=== PATIENT | male | born 1945 | race American Indian/Alaskan Native ===

== ENCOUNTER 2016-07-12 09:31 | Inpatient (IN) | payer BC, MEDICARE ==
--- NOTE | 2016-07-12 10:06 | C.PDOC ---
History Of Present Illness The patient, a 70 y/o male whose PMHx includes HTN and recent MS, is brought to the ED by ambulance for evaluation of dizziness which gradually developed while patient was at work this morning. Patient states he was asymptomatic when he woke up. Patient then walked "quite a distance" to work. Shortly after, patient began experiencing dizziness and lightheadedness. Patient states he took his "heart medicine" at 01:00. Patient denies any active complaints at present time. He also denies fever, chills, dizziness, headache, vision change, focal deficits, chest pain, shortness of breath, dyspnea, diaphoresis, palpitation, abd. pain, N/V/D, UTI sx, denies lower extremity numbness/weakness, swelling s at this time. Time Seen by Provider: 07/12/16 09:47 Chief Complaint (Nursing): Dizziness/Lightheaded History Per: Patient, EMS History/Exam Limitations: no limitations Onset/Duration Of Symptoms: Hrs, Gradual Current Symptoms Are (Timing): Better Activity At Onset Of Symptoms: Standing Seizure Or Post-ictal Symptoms: None Fall Associated With With Symptoms: No Additional History Per: Patient - Symptoms Of CVA Associated Symptoms: denies: Impaired Speech, New Vision Deficit(Left), New Vision Deficit(Right), Decreased Ability To Walk, New Confusion Past Medical History Reviewed: Historical Data, Nursing Documentation, Vital Signs Vital Signs: Last Vital Signs Temp 97.4 F L 07/12/16 17:18 Pulse 69 07/12/16 17:18 Resp 20 07/12/16 17:18 BP 185/88 H 07/12/16 17:18 Pulse Ox 100 07/12/16 17:18 - Medical History PMH: HTN Surgical History: Tonsillectomy Family History: States: Unknown Family Hx - Social History Hx Alcohol Use: Yes Hx Substance Use: No - Immunization History Hx Influenza Vaccination: No Review Of Systems Except As Marked, All Systems Reviewed And Found Negative. Constitutional: Negative for: Fever, Chills Eyes: Negative for: Vision Change Cardiovascular: Negative for: Chest Pain Respiratory: Negative for: Shortness of Breath Neurological: Positive for: Dizziness, Other (+lightheadednes ). Negative for: Weakness, Numbness, Change in Speech, Confusion, Altered Mental Status, Headache Physical Exam - Physical Exam Appears: Well, Non-toxic, No Acute Distress Skin: Normal Color, Warm, Dry Head: Atraumatic, Normacephalic Eye(s): bilateral: Normal Inspection, PERRL, EOMI Oral Mucosa: Moist Throat: Normal Neck: Normal, Normal ROM, Supple Chest: Symmetrical, No Deformity, No Tenderness Cardiovascular: Rhythm Regular, No Murmur, No JVD Respiratory: Normal Breath Sounds, No Rales, No Rhonchi, No Wheezing Gastrointestinal/Abdominal: Normal Exam, Soft, No Tenderness, No Guarding, No Rebound Back: Normal Inspection, No Vertebral Tenderness, No Paraspinal Tenderness Extremity: Normal ROM, No Pedal Edema, No Calf Tenderness, Capillary Refill ( less than 2 seconds), No Deformity, No Swelling Pulses: Left Dorsalis Pedis: Normal, Right Dorsalis Pedis: Normal Neurological/Psych: Oriented x3, Normal Speech, Normal Cognition, Normal Motor, Normal Sensation, Normal Reflexes Gait: Steady ED Course And Treatment - Laboratory Results Result Diagrams: 07/12/16 10:19 07/12/16 10:19 ECG: Interpreted By Me, Viewed By Me ECG Rhythm: Sinus Rhythm Interpretation Of ECG: Normal Sinus Rhythm at rate 81bpm. Lext axis deviation. Q waves in VII, VIII, and aVL. No prior EKG for comparison. O2 Sat by Pulse Oximetry: 98 (on RA) Pulse Ox Interpretation: Normal - Other Rad CXR X-Ray: Interpreted by Me, Viewed By Me, Read By Radiologist Interpretation: Accession No. : [id number]. Patient Name / ID : MARTY JORGENSEN / [id number]. Exam Date : 07/12/2016 10:42:08 ( Approved ). Study Comment : Sex / Age : M / 70Y. Creator : Jackie Ross MD. Dictator : Jackie Ross MD. [employer] : Anesthesia Assistant : Jackie Ross MD. Approver2 : Report Date : 07/12/2016 10:49:34. My Comment : . HISTORY: chest pain. COMPARISON: None available. TECHNIQUE: Chest, one view. FINDINGS: LUNGS: No focal consolidation. Right lower lobe nodular density appears calcified. Probable right pleural plaque. Please note that chest x-ray has limited sensitivity for the detection of pulmonary masses. PLEURA: No significant pleural effusion identified. No definite pneumothorax . CARDIOVASCULAR: Cardiomegaly. OSSEOUS STRUCTURES: Degenerative changes. VISUALIZED UPPER ABDOMEN: Unremarkable. OTHER FINDINGS: None. IMPRESSION: No focal consolidation, significant pleural effusion, or definite pneumothorax identified. Cardiomegaly. Probable right pleural plaque. Small nodular density at the right lung base appears calcified. - CT Scan/US CT Head Other Rad Studies (CT/US): Interpreted By Me, Read By Radiologist, Radiology Report Reviewed CT/US Interpretation: Accession No. : [id number]. Patient Name / ID : MARTY JORGENSEN / [id number]. Exam Date : 07/12/2016 11:30:32 ( Approved ). Study Comment : Sex / Age : M / 70Y. Creator : Jackie Ross MD. Dictator : Jackie Ross MD. [employer] : Anesthesia Assistant : Jackie Ross MD. Approver2 : Report Date : 07/12/2016 11:55:45. My Comment : . PROCEDURE: CT HEAD WITHOUT CONTRAST. HISTORY: dizziness, HTN. COMPARISON: None available. TECHNIQUE: Axial computed tomography images were obtained through the head/brain without intravenous contrast. Radiation dose: Total exam DLP = 876.02 mGy-cm. This CT exam was performed using one or more of the following dose reduction techniques: Automated exposure control, adjustment of the mA and/or kV according to patient size, and/or use of iterative reconstruction technique. FINDINGS: HEMORRHAGE: No intracranial hemorrhage. BRAIN: Diffuse atrophy with prominence of the ventricles and sulci noted. No mass effect or edema. Atherosclerotic intracranial calcifications. Scattered periventricular and subcortical white matter hypodensities, which are nonspecific, but often seen with chronic microvascular ischemic disease. Bilateral lacunar type infarcts involving the bilateral basal ganglia/thalami. Please note that MRI with diffusion imaging is more sensitive in the detection of acute ischemic event. VENTRICLES: No hydrocephalus. CALVARIUM: Unremarkable. PARANASAL SINUSES: Unremarkable as visualized. No significant inflammatory changes. MASTOID AIR CELLS: Unremarkable as visualized. No inflammatory changes. OTHER FINDINGS: None. IMPRESSION: Moderate nonspecific white matter changes. Bilateral lacunar type infarcts involving the bilateral basal ganglia/thalami. Please note that MRI with diffusion imaging is more sensitive in the detection of acute ischemic event. Progress Note: Labs, EKG, CT Head, CXR ordered and reviewed. Patient received Trandate IV. Pt remained stable during the ED evaluation. Pt remained HTN with minimal improvement in BP. Case discussed with ED attending, diagnostics and imaging review and discussed. Admission recommend. Case discussed with pt' s neurologist and results discussed. Admission to Hospitalist with his consult arranged. notified about admission. After pt was admitted , was notified by RN, pt had BM with BRB[facility], " pt admits noted first time". Disposition - Disposition Disposition: HOSPITALIZED Disposition Time: 12:10 Condition: FAIR - Clinical Impression Clinical Impression: Hypertensive urgency, Lacunar infarction, GI bleed - PA / RELAY DISPATCHER / Resident Statement MD/DO has reviewed & agrees with the documentation as recorded. - Scribe Statement The provider has reviewed the documentation as recorded by the Scribe (Twyla Bianchi) All medical record entries made by the Scribe were at my direction and personally dictated by me. I have reviewed the chart and agree that the record accurately reflects my personal performance of the history, physical exam, medical decision making, and the department course for this patient. I have also personally directed, reviewed, and agree with the discharge instructions and disposition.
[2016-07-12] MEDS ORDERED: Labetalol 25mg/5ml Syringe IVP STA (10:23)
[2016-07-12 10:26] LABS: BASO % 0.6 % (0.0-2.0); EOS % 0.3 % (0.0-4.0); LYMPH # 0.9 K/uL (1.0-4.3); LYMPH % 12.8 % (20.0-40.0); MEAN CELL VOLUME 76.6 fL (80.0-94.0); MEAN CORPUSCULAR HEMOGLOBIN 23.7 pg (27.0-31.0); MEAN CORPUSCULAR HGB CONC 30.9 g/dL (33.0-37.0); MEAN PLATELET VOLUME 8.7 fL (7.2-11.7); MONO # 0.5 K/uL (0.0-0.8); MONO % 7.7 % (0.0-10.0); NRBC % 0.1 % (0.0-2.0); WHITE BLOOD COUNT 6.8 K/uL (4.8-10.8)
[2016-07-12 10:35] LABS: INR 1.1
[2016-07-12 10:36] LABS: CHLORIDE 102 mmol/L (98-107); POTASSIUM 3.5 mmol/L (3.6-5.2); SODIUM 140 mmol/L (132-148)
[2016-07-12 10:38] LABS: GFR AFRICAN-AMERICAN > 60
[2016-07-12 10:39] LABS: ALB/GLOB RATIO 1.2 (1.0-2.1); ALKALINE PHOSPHATASE 72 U/L (38-126); ALT/SGPT 13 U/L (21-72); AST/SGOT 19 U/L (17-59); BILIRUBIN,TOTAL 1.5 mg/dL (0.2-1.3); BLOOD UREA NITROGEN 12 mg/dL (9-20); CALCIUM 8.5 mg/dl (8.6-10.4); CARBON DIOXIDE 26 mmol/L (22-30); GLUCOSE,RANDOM 89 mg/dL (75-110); TOTAL PROTEIN 7.1 g/dL (6.3-8.3)
--- NOTE | 2016-07-12 10:51 | RAD ---
HISTORY: chest pain COMPARISON: None available TECHNIQUE: Chest, one view. FINDINGS: LUNGS: No focal consolidation. Right lower lobe nodular density appears calcified. Probable right pleural plaque. Please note that chest x-ray has limited sensitivity for the detection of pulmonary masses. PLEURA: No significant pleural effusion identified. No definite pneumothorax . CARDIOVASCULAR: Cardiomegaly. OSSEOUS STRUCTURES: Degenerative changes. VISUALIZED UPPER ABDOMEN: Unremarkable. OTHER FINDINGS: None. IMPRESSION: No focal consolidation, significant pleural effusion, or definite pneumothorax identified. Cardiomegaly. Probable right pleural plaque. Small nodular density at the right lung base appears calcified.
--- NOTE | 2016-07-12 11:57 | CT ---
PROCEDURE: CT HEAD WITHOUT CONTRAST. HISTORY: dizziness, HTN COMPARISON: None available. TECHNIQUE: Axial computed tomography images were obtained through the head/brain without intravenous contrast. Radiation dose: Total exam DLP = 876.02 mGy-cm. This CT exam was performed using one or more of the following dose reduction techniques: Automated exposure control, adjustment of the mA and/or kV according to patient size, and/or use of iterative reconstruction technique. FINDINGS: HEMORRHAGE: No intracranial hemorrhage. BRAIN: Diffuse atrophy with prominence of the ventricles and sulci noted. No mass effect or edema. Atherosclerotic intracranial calcifications. Scattered periventricular and subcortical white matter hypodensities, which are nonspecific, but often seen with chronic microvascular ischemic disease. Bilateral lacunar type infarcts involving the bilateral basal ganglia/thalami. Please note that MRI with diffusion imaging is more sensitive in the detection of acute ischemic event. VENTRICLES: No hydrocephalus. CALVARIUM: Unremarkable. PARANASAL SINUSES: Unremarkable as visualized. No significant inflammatory changes. MASTOID AIR CELLS: Unremarkable as visualized. No inflammatory changes. OTHER FINDINGS: None. IMPRESSION: Moderate nonspecific white matter changes. Bilateral lacunar type infarcts involving the bilateral basal ganglia/thalami. Please note that MRI with diffusion imaging is more sensitive in the detection of acute ischemic event.
[2016-07-12 13:37] LABS: RBC URINE 1 /hpf (0-3); URINE BILIRUBIN NEGATIVE (NEGATIVE); URINE BLOOD NEGATIVE (NEGATIVE); URINE COLOR Yellow (YELLOW); URINE GLUCOSE (UA) NORMAL (Normal); URINE KETONE NEGATIVE (NEGATIVE); URINE LEUKOCYTE ESTERASE NEG Leu/uL (Negative); URINE PROTEIN 1+ mg/dL (NEGATIVE); URINE UROBILINOGEN NORMAL mg/dL (0.2-1.0); WBC URINE 1 /hpf (0-5)
[2016-07-12] MEDS ORDERED: Nitroglycerin 50mg in D5W 250 ML IV ONE (15:19)
[2016-07-12] MEDS ORDERED: Enalaprilat 2.5 MG/2 ML IV STA (15:21)
[2016-07-12] MEDS ORDERED: Enalaprilat 2.5 MG/2 ML ONE (15:29)
[2016-07-12] MEDS ORDERED: Sodium Chloride 0.45% 1,000 ML IV ONE (15:57)
[2016-07-12] MEDS ORDERED: Potassium Chloride 20 mEq ER Tab PO ONE ×2 (16:00→16:11)
[2016-07-12] MEDS: Sodium Chloride 0.45% 1,000 ML IV SCH (16:07)
--- NOTE | 2016-07-12 16:59 | CP.PCM.HP ---
<Esther Rooney I - Last Filed: 07/12/16 16:54> History of Present Illness - History of Present Illness History of Present Illness: CC: "I got dizzy." Patient is a 70 year old male with unknown past medical history who presents to the ED for dizziness. States that today he woke up feeling fine and walked to walk. Half way there, he became dizzy so he had to sit down because he felt like he was crawling. After that, he got up and finished walking to work and when he got there, he stated that he was dizzy again and the safety security officer called 911. Denies chest pain, SOB, headache, numbness/tingling, confusion, weakness, nausea, vomiting, palpitations or difficulty ambulating. Pmhx: unknown as above Surg hx: unkknown Family hx: unknown Social hx: Smokes 2-3 cigarettes per day since the age of 19, drinks one 8 ounce glass of either beer, liquor or wine per week Meds: unknown Allergies: NKDA PMD: Unknown ED course: Hydralazine 10 mg IVP x 1, Labetalol 20 mg IVP x 1 Present on Admission - Present on Admission Any Indicators Present on Admission: No Review of Systems - Constitutional Constitutional: absent: Chills, Fever, Night Sweats - EENT Eyes: absent: Blurred Vision, Spots in Vision Nose/Mouth/Throat: absent: Sore Throat - Cardiovascular Cardiovascular: absent: Chest Pain, Palpitations, Pedal Edema - Respiratory Respiratory: absent: Dyspnea - Gastrointestinal Gastrointestinal: absent: Abdominal Pain, Hematemesis, Hematochezia, Nausea, Vomiting - Genitourinary Genitourinary: absent: Difficulty Urinating, Dysuria - Musculoskeletal Musculoskeletal: absent: Muscle Weakness, Numbness, Tingling - Integumentary Integumentary: absent: Rash - Neurological Neurological: Dizziness. absent: Focal Weakness, Lack of Coordination, Weakness - Psychiatric Psychiatric: absent: Confusion - Endocrine Endocrine: absent: Palpitations Past Patient History - Past Social History Smoking Status: Never Smoked - CARDIAC Hx Hypertension: Yes - PSYCHIATRIC Hx Substance Use: No - SURGICAL HISTORY Hx Tonsillectomy: Yes - ANESTHESIA Hx Anesthesia: Yes Hx Anesthesia Reactions: No Meds Allergies/Adverse Reactions: Allergies Allergy/AdvReac Type Severity Reaction Status Date / Time No Known Allergies Allergy Verified 07/12/16 09:44 Physical Exam - Constitutional Appears: Non-toxic, No Acute Distress - Head Exam Head Exam: ATRAUMATIC, NORMAL INSPECTION, NORMOCEPHALIC - Eye Exam Pupil Exam: Miosis - ENT Exam ENT Exam: Mucous Membranes Moist - Respiratory Exam Respiratory Exam: Clear to Auscultation Bilateral, NORMAL BREATHING PATTERN - Cardiovascular Exam Cardiovascular Exam: REGULAR RHYTHM, RRR, +S1, +S2 - GI/Abdominal Exam GI & Abdominal Exam: Normal Bowel Sounds, Soft. absent: Tenderness - Rectal Exam Additional comments: Refused - Extremities Exam Extremities exam: Positive for: normal inspection. Negative for: pedal edema - Back Exam Back exam: NORMAL INSPECTION - Neurological Exam Neurological exam: Alert, CN II-XII Intact, Oriented x3, Reflexes Normal Additional comments: normal muscle tone throughout - Psychiatric Exam Psychiatric exam: Normal Affect - Skin Skin Exam: Dry, Normal Color, Warm Results - Vital Signs Recent Vital Signs: Last Vital Signs Temp 98.1 F 07/12/16 16:34 Pulse 71 07/12/16 16:34 Resp 18 07/12/16 16:34 BP 167/88 H 07/12/16 16:34 Pulse Ox 100 07/12/16 16:34 - Labs Result Diagrams: 07/12/16 10:19 07/12/16 10:19 Labs: Laboratory Results - last 24 hr 07/12/16 07/12/16 13:22 15:50 Urine Color Yellow Urine Clarity Clear Urine pH 7.0 Ur Specific [place] 1.015 Urine Protein 1+ H Urine Glucose (UA) Normal Urine Ketones Negative Urine Blood Negative Urine Nitrate Negative Urine Bilirubin Negative Urine Urobilinogen Normal Ur Leukocyte Esterase Neg Urine WBC (Auto) 1 Urine RBC (Auto) 1 Ur Squamous Epith Cells < 1 Blood Type O POSITIVE Antibody Screen Negative Assessment & Plan - Assessment and Plan (Free Text) Assessment: 1. Hypertensive Urgency Admit to Inpt/Tele Start Labetalol 100 mg po BID Start Hydralazine 10 mg IVP q6 prn SBP >180 Will be careful to not lower the BP too quickly Monitor BP 2. Bilateral Lacunar Infarcts as seen on CT (please see official report) Neuro (Dr. Spike Carrera) consulted- await recommendations Patient is a candidate for aspirin but it is contraindicated for GI bleed 3. GI Bleed Patient had a bright red bloody bowel movement at bedside Protonix 40 mg IVP q12 GI (Dr. Fish) consulted- follow up recommendations Recheck CBC now and monitor 4. EtOH abuse Per , patient drinks 1 pint of liquor per day Check UDS and EtOH level Start Ativan 1 mg IVP q3 prn 5. Anemia Hgb 9.9 on admission Most likely secondary to GI bleed Order iron studies, retic count GI on board Follow up repeat CBC Type and screen and obtain transfusion consent Set aside 2 units of PRBC's 6. Hypokalemia 3.5 Replete Recheck in AM 7. Prophylaxis SCD Protonix Chemical anticoagulation contraindicated due to GI bleed <Reji Arzate - Last Filed: 07/17/16 12:59> Results - Vital Signs Recent Vital Signs: Last Vital Signs Temp 98.1 F 07/15/16 16:47 Pulse 79 07/15/16 17:30 Resp 20 07/15/16 16:47 BP 166/74 H 07/15/16 16:47 Pulse Ox 99 07/15/16 16:47 - Labs Result Diagrams: 07/15/16 06:42 07/15/16 06:42 Labs: Laboratory Results - last 24 hr 07/13/16 18:36 von Willebrand Antigen 116 Attending/Attestation - Attestation I have personally seen and examined this patient.: Yes I have fully participated in the care of the patient.: Yes I have reviewed all pertinent clinical information: Yes Notes (Text): 07/17/16 12:58 Patient was seen and examined at bedside with the resident. I reviewed patient's medical record, labs, imaging studies, ER notes. I discussed the plan of care with the resident and I agree with the above history and physical and assessment/plan by the resident.
--- NOTE | 2016-07-12 17:16 | CP.PCM.CON ---
History of Present Illness - History of Present Illness History of Present Illness: Chief complaint: Dizziness History present illness: 70-year-old male with known history of hypertension but was not taking any medications in the past came to the emergency room with the dizziness. This morning patient woke up but 2:00, and he came to work. According to the patient's that he wants to go to work. When he arrived the job, he felt dizzy. And the bystander in the job called ambulance and brought him to the emergency room. In the ER patient was somewhat confused, not getting proper information. But he was having some dizziness, which got better. When examined the patient he is alert and responding, he understands. He did not have any headache, no chest pain, no abdominal pain, denies any nausea, no vomiting noted. Small amount of blood in the stool noted but it was not clear as per the nurses. He does not have any vomiting currently. No fever or chills. Patient drinks a daily at least one glass hard liquor, for many years., He is also smokes at least 3-4 cigarettes a day Review of Systems - Review of Systems All systems: reviewed and no additional remarkable complaints except Review of Systems: patient is alert. He does not have any headache. Minimal dizziness noted. Palpitation is negative. In the emergency room patient was having high blood pressure. No nausea vomiting noted, denies any abdominal pain. In the past the patient did not have any bleeding episodes. Patient is not clear whether he had any anemia in the past. Patient did not see any doctors in the past Past Patient History - Tetanus Immunizations Tetanus Immunization: Unknown - Past Medical History & Family History Past Medical History?: No Past Family History: Reviewed and not pertinent - Past Social History Smoking Status: Never Smoked - CARDIAC Hx Hypertension: Yes - PSYCHIATRIC Hx Substance Use: No - SURGICAL HISTORY Hx Tonsillectomy: Yes - ANESTHESIA Hx Anesthesia: Yes Hx Anesthesia Reactions: No Meds Allergies/Adverse Reactions: Allergies Allergy/AdvReac Type Severity Reaction Status Date / Time No Known Allergies Allergy Verified 07/12/16 09:44 - Medications Medications: Current Medications Hydralazine HCl (Apresoline) 10 mg IVP Q6H PRN PRN Reason: Systolic Blood Pressure Sodium Chloride (Sodium Chloride 0.45%) 1,000 mls @ 75 mls/hr IV .[id number] [facility] Last Admin: 07/12/16 16:07 Dose: 75 mls/hr Labetalol HCl (Trandate) 100 mg PO BID [facility] Pantoprazole Sodium (Protonix Inj) 40 mg IVP Q12 [facility] Last Admin: 07/12/16 16:07 Dose: 40 mg Physical Exam - Head Exam Head Exam: ATRAUMATIC Additional comments: chest good air entry bilaterally. Regular heart sound noted. Nontender abdomen. Extended is no pedal edema [employer] alert awake oriented 3 no focal neurological deficit. Patient was able to stand, he did not have any dizziness when he is standing, and he had a small amount of urination, but more frequently. Patient able to void by himself Results - Vital Signs Recent Vital Signs: Last Vital Signs Temp 98.1 F 07/12/16 16:34 Pulse 71 07/12/16 16:34 Resp 18 07/12/16 16:34 BP 167/88 H 07/12/16 16:34 Pulse Ox 100 07/12/16 16:34 patient was hospitalized recently 3-4 months ago for possible pneumonia, at the time patient had a chest tube placement for possible empyema and lung collapse but history is not available, as per patient's - Labs Result Diagrams: 07/12/16 10:19 07/12/16 10:19 Labs: Laboratory Results - last 24 hr 07/12/16 07/12/16 13:22 15:50 Urine Color Yellow Urine Clarity Clear Urine pH 7.0 Ur Specific [place] 1.015 Urine Protein 1+ H Urine Glucose (UA) Normal Urine Ketones Negative Urine Blood Negative Urine Nitrate Negative Urine Bilirubin Negative Urine Urobilinogen Normal Ur Leukocyte Esterase Neg Urine WBC (Auto) 1 Urine RBC (Auto) 1 Ur Squamous Epith Cells < 1 Blood Type O POSITIVE Antibody Screen Negative - Impressions Impression: chest x-rays nonspecific. CAT scan of the head showing evidence of lacunar infarct probably old Assessment & Plan (1) Hypertensive urgency Assessment and Plan: patient is a 70-year-old male with a noncompliant support medication, did not see any doctor so far, into the emergency room with the dizziness. Patient is currently having uncontrolled hypertension. There is no evidence of any end organ damage currently. Patient is also drinks alcohol on and off. Alcoholism likely. Patient is given intravenous antihypertensives. I suggested to start the patient on by mouth medications. GI prophylaxis. Spoke to the patient's in details about the patient's condition. According to the patient is noncompliance with medications, does not see any doctor, he still drinks alcohol, also smokes. I spoke to the patient in details about the. Patient is also having anemia, possibly chronic anemia. patient will need to be evaluated for GI loss. no need of ICU at this time. Status: Acute
[2016-07-12 19:17] LABS: BASO % 0.7 % (0.0-2.0); EOS # 0.1 K/uL (0.0-0.7); EOS % 1.1 % (0.0-4.0); HEMATOCRIT 33.7 % (35.0-51.0); LYMPH # 1.2 K/uL (1.0-4.3); LYMPH % 18.6 % (20.0-40.0); MEAN CELL VOLUME 75.7 fL (80.0-94.0); MEAN CORPUSCULAR HEMOGLOBIN 23.3 pg (27.0-31.0); MEAN CORPUSCULAR HGB CONC 30.8 g/dL (33.0-37.0); MEAN PLATELET VOLUME 8.3 fL (7.2-11.7); MONO # 0.7 K/uL (0.0-0.8); MONO % 10.7 % (0.0-10.0); RED CELL DISTRIBUTION WIDTH 20.8 % (11.5-14.5); WHITE BLOOD COUNT 6.7 K/uL (4.8-10.8)
--- NOTE | 2016-07-12 19:30 | CON ---
DATE: 07/12/2016 REASON FOR CONSULTATION: Dizziness. HISTORY OF PRESENT ILLNESS: The patient is a 70-year-old male who has been asked for evaluation of d shaan. The patient got up this morning and went to work. Half way to work, he started becoming d ysabel. Dizziness is described as lightheaded feeling and he was feeling like he was going to pass out . Apparently, he sat down because he felt like he was going to faint and then was crawling. He got up and finished walkin to work, then again he started getting dizzy and the assistant director of security called 911 . The patient never lost consciousness. He denied any focal weakness in his arms or legs. Once he got to the Emergency Room, his dizziness started getting better. He denied any loss of hearing or ri nging in the ears. Denies having any focal weakness in the arms or legs. In the Emergency Room, the patient's blood pressure was noted to be elevated. REVIEW OF SYSTEMS: Denies any headache, chest pain, shortness of breath, abdominal pain, constipatio n, diarrhea, dysuria, pyuria, cough, sputum production. Positive for memory loss. Denies any skin r kathy or hallucinations. PAST MEDICAL HISTORY: Hypertension. PAST SURGICAL HISTORY: Tonsillectomy. MEDICATIONS AT HOME: None. ALLERGIES: No known drug allergies. SOCIAL HISTORY: Denies smoking, use of alcohol or illicit drugs. FAMILY HISTORY: Reviewed and noncontributory to the case. PHYSICAL EXAMINATION: GENERAL: The patient is an elderly male lying on the bed, in no acute distress. VITAL SIGNS: His blood pressure is 167/88; it was 216/106 earlier today. Heart rate is 71 per minut e, breathing at a rate of 16 per minute, temperature is 98.1 degrees Fahrenheit. HEENT: Head normocephalic, atraumatic. NECK: Supple. There are no carotid bruits. LUNGS: Clear. CARDIOVASCULAR: S1, S2 audible. No murmurs. ABDOMEN: Soft, nontender, bowel sounds present. NEUROLOGIC EXAMINATION: MENTAL STATUS: Awake, alert, oriented to time, place, person. Speech is fluent. Naming and repetit ion is normal. Recent memory is 1/3 in 5 minutes. He follows all simple commands. CRANIAL NERVES: Pupils are 4 mm bilaterally, reactive to light. Visual roca are full. Extraocula r movements are intact. There is no facial asymmetry. Palate is upgoing bilaterally and tongue is m idline. MOTOR: Tone is normal. Power is 5/5 bilaterally in all extremities. Reflexes +1 and symmetrical. Plantars are downgoing bilaterally. CEREBELLAR: [id number] shows no dysmetria. GAIT: Narrow based. LABORATORIES: Reviewed, shows WBC of 6.8, hemoglobin 9.9, hematocrit of 32.0 and platelets of 227, I NR is 1.1. Sodium is 140, potassium 3.5, chloride 102, carbon dioxide content 26, BUN of 12, creatin ine 1.1, and glucose of 89. He had a CT scan of the head done which showed moderate nonspecific whit e matter changes, bilateral lacunar type infarcts involving the basal ganglia and . IMPRESSION: 1. Status post dizziness. Rule out any central etiology like cerebrovascular accident, possibly sec ondary to his underlying anemia. 2. Hypertension. 3. Cerebrovascular disease. 4. Gastrointestinal bleed. 5. Memory loss. RECOMMENDATIONS: 1. The patient to have MRI of the brain without contrast. 2. The patient also to have a carotid Doppler study. 3. The patient to have a serum cholesterol level. 4. The patient to have a vitamin B12, T4, and TSH levels. 5. The patient to have a GI evaluation and once cleared from a GI standpoint, the patient will be st arted on aspirin for stroke prophylaxis. 6. The patient's blood pressure to be better controlled. 7. Please continue supportive care and other treatment. Thank you for the opportunity to participate in the care of this patient. Skyla Carrera MD cc: [id number] TT: 07/12/2016 19:29:46 Confirmation # [id number] Dictation # [id number] dn
[2016-07-12] MEDS ORDERED: Pneumococcal 23-Valent Vaccine IM ONE (22:00)
[2016-07-13 06:30] LABS: BASO % 0.6 % (0.0-2.0); EOS # 0.1 K/uL (0.0-0.7); EOS % 1.1 % (0.0-4.0); HEMATOCRIT 31.3 % (35.0-51.0); LYMPH % 16.7 % (20.0-40.0); MEAN CELL VOLUME 76.3 fL (80.0-94.0); MEAN CORPUSCULAR HEMOGLOBIN 23.4 pg (27.0-31.0); MEAN CORPUSCULAR HGB CONC 30.7 g/dL (33.0-37.0); MEAN PLATELET VOLUME 8.2 fL (7.2-11.7); MONO # 0.7 K/uL (0.0-0.8); MONO % 10.9 % (0.0-10.0); NRBC % 0.1 % (0.0-2.0); RED CELL DISTRIBUTION WIDTH 20.8 % (11.5-14.5); WHITE BLOOD COUNT 6.2 K/uL (4.8-10.8)
[2016-07-13 06:42] LABS: CHLORIDE 103 mmol/L (98-107); SODIUM 137 mmol/L (132-148)
[2016-07-13 06:43] LABS: POTASSIUM 3.7 mmol/L (3.6-5.2)
[2016-07-13 06:45] LABS: ALB/GLOB RATIO 1.1 (1.0-2.1); ALKALINE PHOSPHATASE 63 U/L (38-126); AST/SGOT 15 U/L (17-59); BILIRUBIN,TOTAL 1.9 mg/dL (0.2-1.3); BLOOD UREA NITROGEN 12 mg/dL (9-20); CARBON DIOXIDE 26 mmol/L (22-30); CHOLESTEROL 147 mg/dL (0-199); GFR AFRICAN-AMERICAN > 60; GLUCOSE,RANDOM 85 mg/dL (75-110); TOTAL PROTEIN 6.2 g/dL (6.3-8.3)
[2016-07-13 06:46] LABS: ALT/SGPT 11 U/L (21-72)
[2016-07-13 07:08] LABS: THYROID STIMULATING HORMONE 0.74 mIU/L (0.46-4.68)
--- NOTE | 2016-07-13 08:37 | CP.PCM.CON ---
<Joce Cadet - Last Filed: 07/13/16 11:02> History of Present Illness - History of Present Illness History of Present Illness: PGY4 GI Fellow Consult Note Patient is a 70 year old male with unclear PMHx who presented to the ED for dizziness. The patient states that he drove to work and upon arrival, was walking from his car to his office when he became very dizzy. On arrival to his job, his coworkers called an ambulance to bring him to the hospital as he could not even stand on his own. On arrival to the ED he was noted to have a BP of 210 /190 and was given IV Labetalol with improvement in BP. A CT head did reveal two lacunar infarcts in the bilateral basal ganglia. On arrival to the medical floor he had an episode of hematochezia which continued through last night. At present, he has a bedside commode with large amount of melena and some fresh blood. He denies any history of mary hematochezia or recent melena and denies anything like this leading up to admission. Currently, he states he is feeling better and denies any SOB, fatigue, nausea, vomiting, abdominal pain, heartburn. He has had no weight loss recently and does not admit to frequent NSAID use. The patient is unclear as to why, but knows he had a large abdominal surgery previously. He has a large midline scar and believes he had an ostomy with reversal at some point though he cannot describe why. PMHx: Unclear; possibly HTN and recent MT (per EMR) PSHx: Unclear; questionable partial colectomy with ostomy formation and eventual reversal FHx: Discussed with patient and she denies any significant family history Social: Smokes 2-3 cigarettes/day for many years; Weekly EtOH use; Denies illicit drug use Endo: Unsure; pt believes he had a colonoscopy ~2 years ago Review of Systems - Constitutional Constitutional: absent: Anorexia, Chills, Fever, Weight Loss, Weakness - EENT Eyes: absent: Change in Vision Nose/Mouth/Throat: absent: Sore Throat - Cardiovascular Cardiovascular: absent: Chest Pain, Dyspnea, Palpitations - Respiratory Respiratory: absent: Cough, Dyspnea, Excessive Mucous Production - Gastrointestinal Gastrointestinal: Hematochezia, Melena. absent: Abdominal Pain, Constipation, Cramping, Diarrhea, Dyspepsia, Dysphagia, Hematemesis, Loose Stools, Nausea, Vomiting - Genitourinary Genitourinary: absent: Dysuria, Urinary Frequency, Urinary Urgency - Musculoskeletal Musculoskeletal: absent: Back Pain, Neck Pain - Integumentary Integumentary: absent: New Lesions, Rash - Neurological Neurological: absent: Dizziness, Numbness, Focal Weakness - Psychiatric Psychiatric: absent: Anxiety, Depression - Endocrine Endocrine: absent: Polydipsia, Polyphagia, Polyuria - Hematologic/Lymphatic Hematologic: absent: Easy Bleeding, Easy Bruising, Lymphadenopathy Past Patient History - Tetanus Immunizations Tetanus Immunization: Unknown - Past Medical History & Family History Past Medical History?: Yes - Past Social History Smoking Status: Light Smoker < 10 Cigarettes Daily - CARDIAC Hx Cardiac Disorders: Yes Hx Heart Attack: Yes (6 months ago) Hx Hypertension: Yes - PULMONARY Hx Respiratory Disorders: No - NEUROLOGICAL Hx Neurological Disorder: Yes Hx Dizziness: Yes - HEENT Hx HEENT Problems: No - RENAL Hx Chronic Kidney Disease: No - ENDOCRINE/METABOLIC Hx Endocrine Disorders: No - HEMATOLOGICAL/ONCOLOGICAL Hx Blood Disorders: No - INTEGUMENTARY Hx Dermatological Problems: No - MUSCULOSKELETAL/RHEUMATOLOGICAL Hx Musculoskeletal Disorders: No Hx Falls: No - GASTROINTESTINAL Hx Gastrointestinal Disorders: No - GENITOURINARY/GYNECOLOGICAL Hx Genitourinary Disorders: No - PSYCHIATRIC Hx Psychophysiologic Disorder: No Hx Substance Use: No - SURGICAL HISTORY Hx Surgeries: Yes Hx Tonsillectomy: Yes - ANESTHESIA Hx Anesthesia: Yes Hx Anesthesia Reactions: No Hx Malignant Hyperthermia: No Has any member of the family had a problem w/ anesthesia?: No Meds Allergies/Adverse Reactions: Allergies Allergy/AdvReac Type Severity Reaction Status Date / Time No Known Allergies Allergy Verified 07/12/16 09:44 - Medications Medications: Current Medications Hydralazine HCl (Apresoline) 10 mg IVP Q6H PRN PRN Reason: Systolic Blood Pressure Last Admin: 07/12/16 17:42 Dose: 10 mg Sodium Chloride (Sodium Chloride 0.45%) 1,000 mls @ 75 mls/hr IV .[id number] [facility] Last Admin: 07/12/16 16:07 Dose: 75 mls/hr Labetalol HCl (Trandate) 100 mg PO BID [facility] Last Admin: 07/12/16 19:00 Dose: 100 mg Lorazepam (Ativan) 1 mg IVP Q3 PRN PRN Reason: Anxiety Pantoprazole Sodium (Protonix Inj) 40 mg IVP Q12 [facility] Last Admin: 07/12/16 21:59 Dose: 40 mg Physical Exam - Constitutional Appears: Non-toxic, No Acute Distress - Eye Exam Eye Exam: EOMI, PERRL - ENT Exam ENT Exam: Mucous Membranes Moist - Respiratory Exam Respiratory Exam: Clear to Auscultation Bilateral. absent: Rales, Rhonchi, Wheezes - Cardiovascular Exam Cardiovascular Exam: RRR, +S1, +S2 - GI/Abdominal Exam GI & Abdominal Exam: Normal Bowel Sounds, Soft. absent: Distended, Firm, Guarding, Rigid, Tenderness - Rectal Exam Additional comments: Pt refusing rectal examination; commode at bedside with melena/fresh blood - Extremities Exam Extremities exam: Positive for: normal inspection - Neurological Exam Neurological exam: Alert, Oriented x3 - Psychiatric Exam Psychiatric exam: Normal Affect, Normal Mood - Skin Skin Exam: Dry, Warm Results - Vital Signs Recent Vital Signs: Last Vital Signs Temp 97.8 F 07/13/16 04:00 Pulse 71 07/13/16 04:00 Resp 20 07/13/16 04:00 BP 165/67 H 07/13/16 04:00 Pulse Ox 95 07/13/16 04:00 - Labs Result Diagrams: 07/13/16 06:11 07/13/16 06:11 Labs: Laboratory Results - last 24 hr 07/12/16 07/12/16 07/12/16 13:22 15:50 19:13 WBC 6.7 RBC 4.45 Hgb 10.4 L Hct 33.7 L MCV 75.7 L MCH 23.3 L MCHC 30.8 L RDW 20.8 H Plt Count 221 MPV 8.3 Neut % (Auto) 68.9 Lymph % (Auto) 18.6 L [place] % (Auto) 10.7 H Eos % (Auto) 1.1 Baso % (Auto) 0.7 Neut # 4.6 Lymph # 1.2 [place] # 0.7 Eos # 0.1 Baso # 0.0 Sodium Potassium Chloride Carbon Dioxide Anion Gap BUN Creatinine Est GFR ( Amer) Est GFR (Non-Af Amer) Random Glucose Hemoglobin A1c Calcium Total Bilirubin AST ALT Alkaline Phosphatase Ammonia < 9 L Total Protein Albumin Globulin Albumin/Globulin Ratio Triglycerides Cholesterol LDL Cholesterol Direct HDL Cholesterol Thyroxine (T4) TSH 3rd Generation Urine Color Yellow Urine Clarity Clear Urine pH 7.0 Ur Specific [place] 1.015 Urine Protein 1+ H Urine Glucose (UA) Normal Urine Ketones Negative Urine Blood Negative Urine Nitrate Negative Urine Bilirubin Negative Urine Urobilinogen Normal Ur Leukocyte Esterase Neg Urine WBC (Auto) 1 Urine RBC (Auto) 1 Ur Squamous Epith Cells < 1 Urine Opiates Screen Urine Methadone Screen Ur Barbiturates Screen Ur Phencyclidine Scrn Ur Amphetamines Screen U Benzodiazepines Scrn U Oth Cocaine Metabols U Cannabinoids Screen Alcohol, Quantitative < 10 Blood Type O POSITIVE Antibody Screen Negative 07/12/16 07/13/16 21:04 06:11 WBC 6.2 RBC 4.10 L Hgb 9.6 L Hct 31.3 L MCV 76.3 L MCH 23.4 L MCHC 30.7 L RDW 20.8 H Plt Count 200 MPV 8.2 Neut % (Auto) 70.7 Lymph % (Auto) 16.7 L [place] % (Auto) 10.9 H Eos % (Auto) 1.1 Baso % (Auto) 0.6 Neut # 4.4 Lymph # 1.0 [place] # 0.7 Eos # 0.1 Baso # 0.0 Sodium 137 Potassium 3.7 Chloride 103 Carbon Dioxide 26 Anion Gap 12 BUN 12 Creatinine 1.0 Est GFR ( Amer) > 60 Est GFR (Non-Af Amer) > 60 Random Glucose 85 Hemoglobin A1c 5.7 Calcium 8.0 L Total Bilirubin 1.9 H AST 15 L D ALT 11 L Alkaline Phosphatase 63 Ammonia Total Protein 6.2 L Albumin 3.3 L Globulin 2.9 Albumin/Globulin Ratio 1.1 Triglycerides 83 Cholesterol 147 LDL Cholesterol Direct 73 HDL Cholesterol 50 Thyroxine (T4) 6.00 TSH 3rd Generation 0.74 Urine Color Urine Clarity Urine pH Ur Specific [place] Urine Protein Urine Glucose (UA) Urine Ketones Urine Blood Urine Nitrate Urine Bilirubin Urine Urobilinogen Ur Leukocyte Esterase Urine WBC (Auto) Urine RBC (Auto) Ur Squamous Epith Cells Urine Opiates Screen Negative Urine Methadone Screen Negative Ur Barbiturates Screen Negative Ur Phencyclidine Scrn Negative Ur Amphetamines Screen Negative U Benzodiazepines Scrn Negative U Oth Cocaine Metabols Negative U Cannabinoids Screen Negative Alcohol, Quantitative Blood Type Antibody Screen Assessment & Plan - Assessment and Plan (Free Text) Assessment: Patient is a 70 year old male with unclear PMHx who presented to the ED for dizziness. -Acute blood loss anemia -Hypertensive emergency -Bilateral lacunar infarcts Plan: -Patient refused rectal examination at this time -Given findings of melena/fresh blood along with anemia - recommend urgent EGD today -Would prep this afternoon and plan for colonoscopy tomorrow -Obtain medical records from [facility] -IVF as ordered, monitor BP closely and treat as indicated -CBC BID for now -Transfuse as needed, 2 units placed on hold -MRI brain planned -Cannot recommend ASA given ongoing blood loss -NPO - Date & Time Date: 07/13/16 Time: 07:45 <Akin Dai MD - Last Filed: 07/13/16 11:26> Meds - Medications Medications: Current Medications Hydralazine HCl (Apresoline) 10 mg IVP Q6H PRN PRN Reason: Systolic Blood Pressure Last Admin: 07/13/16 09:17 Dose: 10 mg Sodium Chloride (Sodium Chloride 0.45%) 1,000 mls @ 75 mls/hr IV .[id number] [facility] Last Admin: 07/13/16 09:41 Dose: 75 mls/hr Labetalol HCl (Trandate) 100 mg PO BID [facility] Last Admin: 07/13/16 09:23 Dose: 100 mg Lorazepam (Ativan) 1 mg IVP Q3 PRN PRN Reason: Anxiety Pantoprazole Sodium (Protonix Inj) 40 mg IVP Q12 [facility] Last Admin: 07/13/16 09:16 Dose: 40 mg Results - Vital Signs Recent Vital Signs: Last Vital Signs Temp 97.8 F 07/13/16 09:05 Pulse 64 07/13/16 09:05 Resp 20 07/13/16 09:05 BP 175/77 H 07/13/16 10:19 Pulse Ox 98 07/13/16 09:05 - Labs Result Diagrams: 07/13/16 06:11 07/13/16 06:11 Labs: Laboratory Results - last 24 hr 07/12/16 07/12/16 07/12/16 13:22 15:50 19:13 WBC 6.7 RBC 4.45 Hgb 10.4 L Hct 33.7 L MCV 75.7 L MCH 23.3 L MCHC 30.8 L RDW 20.8 H Plt Count 221 MPV 8.3 Neut % (Auto) 68.9 Lymph % (Auto) 18.6 L [place] % (Auto) 10.7 H Eos % (Auto) 1.1 Baso % (Auto) 0.7 Neut # 4.6 Lymph # 1.2 [place] # 0.7 Eos # 0.1 Baso # 0.0 Sodium Potassium Chloride Carbon Dioxide Anion Gap BUN Creatinine Est GFR ( Amer) Est GFR (Non-Af Amer) Random Glucose Hemoglobin A1c Calcium Total Bilirubin AST ALT Alkaline Phosphatase Ammonia < 9 L Total Protein Albumin Globulin Albumin/Globulin Ratio Triglycerides Cholesterol LDL Cholesterol Direct HDL Cholesterol Vitamin B12 Thyroxine (T4) TSH 3rd Generation Urine Color Yellow Urine Clarity Clear Urine pH 7.0 Ur Specific [place] 1.015 Urine Protein 1+ H Urine Glucose (UA) Normal Urine Ketones Negative Urine Blood Negative Urine Nitrate Negative Urine Bilirubin Negative Urine Urobilinogen Normal Ur Leukocyte Esterase Neg Urine WBC (Auto) 1 Urine RBC (Auto) 1 Ur Squamous Epith Cells < 1 Urine Opiates Screen Urine Methadone Screen Ur Barbiturates Screen Ur Phencyclidine Scrn Ur Amphetamines Screen U Benzodiazepines Scrn U Oth Cocaine Metabols U Cannabinoids Screen Alcohol, Quantitative < 10 Blood Type O POSITIVE Antibody Screen Negative 07/12/16 07/13/16 21:04 06:11 WBC 6.2 RBC 4.10 L Hgb 9.6 L Hct 31.3 L MCV 76.3 L MCH 23.4 L MCHC 30.7 L RDW 20.8 H Plt Count 200 MPV 8.2 Neut % (Auto) 70.7 Lymph % (Auto) 16.7 L [place] % (Auto) 10.9 H Eos % (Auto) 1.1 Baso % (Auto) 0.6 Neut # 4.4 Lymph # 1.0 [place] # 0.7 Eos # 0.1 Baso # 0.0 Sodium 137 Potassium 3.7 Chloride 103 Carbon Dioxide 26 Anion Gap 12 BUN 12 Creatinine 1.0 Est GFR ( Amer) > 60 Est GFR (Non-Af Amer) > 60 Random Glucose 85 Hemoglobin A1c 5.7 Calcium 8.0 L Total Bilirubin 1.9 H AST 15 L D ALT 11 L Alkaline Phosphatase 63 Ammonia Total Protein 6.2 L Albumin 3.3 L Globulin 2.9 Albumin/Globulin Ratio 1.1 Triglycerides 83 Cholesterol 147 LDL Cholesterol Direct 73 HDL Cholesterol 50 Vitamin B12 344 Thyroxine (T4) 6.00 TSH 3rd Generation 0.74 Urine Color Urine Clarity Urine pH Ur Specific [place] Urine Protein Urine Glucose (UA) Urine Ketones Urine Blood Urine Nitrate Urine Bilirubin Urine Urobilinogen Ur Leukocyte Esterase Urine WBC (Auto) Urine RBC (Auto) Ur Squamous Epith Cells Urine Opiates Screen Negative Urine Methadone Screen Negative Ur Barbiturates Screen Negative Ur Phencyclidine Scrn Negative Ur Amphetamines Screen Negative U Benzodiazepines Scrn Negative U Oth Cocaine Metabols Negative U Cannabinoids Screen Negative Alcohol, Quantitative Blood Type Antibody Screen Attending/Attestation - Attestation I have personally seen and examined this patient.: Yes I have fully participated in the care of the patient.: Yes I have reviewed all pertinent clinical information: Yes Notes (Text): 07/13/16 11:23 Patient seen and examined with GI fellow at bedside. This is a 70 year old male with unclear PMHx who presented to the ED for dizziness found to have anemia and hypertensive urgency. Ct head showed chronic bilateral lacunar infarcts. This morning had two large bowel movements with blood. Will proceed with urgent EGD and transfuse as needed. Hemodynamically stable. PPI daily. If EGD negative will prep for colonoscopy tomorrow. Daily CBC. Pbtain prior records- patient gives questionable history of luminal surgery in the past. 07/13/16 11:26
[2016-07-13] MEDS: Sodium Chloride 0.45% 1,000 ML IV SCH ×2 (09:41→18:56)
[2016-07-13] MEDS ORDERED: Potassium Chloride 20 mEq ER Tab PO STA (09:54)
[2016-07-13] MEDS ORDERED: Midazolam 2 MG/2 ML VIAL ONE (10:41)
[2016-07-13] MEDS ORDERED: Etomidate 20 mg/10ml Inj IV ONE (10:42)
[2016-07-13] MEDS ORDERED: Propofol 10 mg/ml Inj (20 ML) ONE (10:43)
[2016-07-13] MEDS ORDERED: EPINEPHrine 1 mg/ml (1:1000) Inj ONE (11:50)
[2016-07-13] MEDS ORDERED: Bisacodyl 5mg EC Tab PO ONE (14:00)
[2016-07-13] MEDS ORDERED: Peg-Electrolyte Oral Soln 4L (Golytely) PO ONE (15:00)
--- NOTE | 2016-07-13 15:17 | CP.PCM.PN ---
<Ruth Urbina - Last Filed: 07/13/16 15:13> Subjective - Date & Time of Evaluation Date of Evaluation: 07/13/16 Time of Evaluation: 15:17 - Subjective Subjective: Patient seen and examined at bedside. Patient states he feels improved from yesterday. He denies previous history of hypertension; however, he does not regular see a primary care doctor. Patient reports mild dizziness currently. He is alert and oriented x3 but forgetful on examination. He denies weakness, fatigue, chest pain, palpitations, shortness of breath, abdominal pain, nausea, vomiting, constipation and diarrhea. Patient admits to having blood in stools x 2 days. He denies previous history. Objective - Vital Signs/Intake and Output Vital Signs (last 24 hours): Temp Pulse Resp BP Pulse Ox 97.5 F L 76 20 115/63 99 07/13/16 13:41 07/13/16 13:41 07/13/16 13:41 07/13/16 13:41 07/13/16 12:15 Intake and Output: 07/13/16 07/13/16 06:59 18:59 Intake Total 600 125 Balance 600 125 - Medications Medications: Current Medications Hydralazine HCl (Apresoline) 10 mg IVP Q6H PRN PRN Reason: Systolic Blood Pressure Last Admin: 07/13/16 09:17 Dose: 10 mg Sodium Chloride (Sodium Chloride 0.45%) 1,000 mls @ 75 mls/hr IV .[id number] [facility] Last Admin: 07/13/16 09:41 Dose: 75 mls/hr Labetalol HCl (Trandate) 100 mg PO BID [facility] Last Admin: 07/13/16 09:23 Dose: 100 mg Lorazepam (Ativan) 1 mg IVP Q3 PRN PRN Reason: Anxiety Pantoprazole Sodium (Protonix Inj) 40 mg IVP Q12 [facility] Last Admin: 07/13/16 09:16 Dose: 40 mg - Labs Labs: 07/13/16 06:11 07/13/16 06:11 PT 12.0 SECONDS (9.7-12.2) 07/12/16 10:19 INR 1.1 07/12/16 10:19 APTT 32 SECONDS (21-34) 07/12/16 10:19 - Constitutional Appears: Non-toxic, No Acute Distress - Head Exam Head Exam: ATRAUMATIC, NORMAL INSPECTION, NORMOCEPHALIC - Eye Exam Eye Exam: EOMI, Normal appearance, PERRL - ENT Exam ENT Exam: Mucous Membranes Moist - Neck Exam Neck Exam: Normal Inspection - Respiratory Exam Respiratory Exam: Clear to Ausculation Bilateral, NORMAL BREATHING PATTERN. absent: Rales, Rhonchi, Wheezes - Cardiovascular Exam Cardiovascular Exam: Gallop, +S1, +S2. absent: Tachycardia - GI/Abdominal Exam GI & Abdominal Exam: Soft, Normal Bowel Sounds. absent: Distended, Firm, Tenderness - Extremities Exam Extremities Exam: Normal Inspection. absent: Pedal Edema, Tenderness - Neurological Exam Neurological Exam: Alert, Awake, CN II-XII Intact, Oriented x3 Neuro motor strength exam: Left Upper Extremity: 5, Right Upper Extremity: 5, Left Lower Extremity: 5, Right Lower Extremity: 5 - Psychiatric Exam Psychiatric exam: Normal Affect, Normal Mood Additional comments: Answers appropriately to questions. Forgetful after approximately 5 minutes. - Skin Skin Exam: Intact, Normal Color Assessment and Plan - Assessment and Plan (Free Text) Assessment: 1. Hypertensive Urgency Admit to Inpt/Tele Continue on Labetalol 100 mg po BID and Hydralazine 10 mg IVP Q6h PRN Start Hydralazine 10 mg IVP q6 prn SBP >180 Will be careful to not lower the BP too quickly Monitor 2. Bilateral Lacunar Infarcts CT Head: Moderate nonspecific white matter changes. Bilateral lacunar type infarcts involving the bilateral basal ganglia/thalami Neuro (Dr. Spike Carrera) consulted- Brain MRI without contrast, Carotid Doppler, TSH/ T4: 0.74/6.00, Vitamin B12 344 Patient is a candidate for aspirin but it is contraindicated due to current GI bleed 3. GI Bleed Hemoglobin 9.6 down from 10.4 Patient continues to have bloody bowel movements s/p EGD - gastric ulcer but not source of bleed. Patient to have colonoscopy tomorrow. NPO at Breakfast Protonix 40 mg IVP q12h GI (Dr. Fish) consulted- follow up recommendations Type and Screen f/u CBC q6h Aspirin contraindicated due to bleed 4. Acute Microcytic Anemia secondary to GI bleed Hgb 9.9 on admission, today 9.6 Most likely secondary to GI bleed f/u iron studies GI on board Follow up repeat CBC Type and screen and transfusion consent Set aside 2 units of PRBC's 5. Alcohol abuse Per , patient drinks 1 pint of liquor per day UDS negative, Alcohol Quant <10 Continue Ativan 1 mg IVP q3 prn 6. Hypokalemia 3.7 kdur 40 meq given stat Recheck in AM 7. Prophylaxis SCD Protonix Chemical anticoagulation contraindicated due to GI bleed <Cesar Phelan - Last Filed: 08/17/16 12:04> Objective - Vital Signs/Intake and Output Vital Signs (last 24 hours): Temp Pulse Resp BP Pulse Ox 98.1 F 79 20 166/74 H 99 07/15/16 16:47 07/15/16 17:30 07/15/16 16:47 07/15/16 16:47 07/15/16 16:47 - Labs Labs: 07/15/16 06:42 07/15/16 06:42 PT 12.0 SECONDS (9.7-12.2) 07/12/16 10:19 INR 1.1 07/12/16 10:19 APTT 32 SECONDS (21-34) 07/12/16 10:19 Attending/Attestation - Attestation I have personally seen and examined this patient.: Yes I have fully participated in the care of the patient.: Yes I have reviewed all pertinent clinical information, including history, physical exam and plan: Yes Notes (Text): Patient seen and examined with the resident. Agree with the resident's evaluation, assessment and plan. Hypertensive Urgency Admit to Inpt/Tele Continue on Labetalol 100 mg po BID and Hydralazine 10 mg IVP Q6h PRN Start Hydralazine 10 mg IVP q6 prn SBP >180 Will be careful to not lower the BP too quickly Monitor Bilateral Lacunar Infarcts CT Head: Moderate nonspecific white matter changes. Bilateral lacunar type infarcts involving the bilateral basal ganglia/thalami Neuro (Dr. Spike Carrera) consulted- Brain MRI without contrast, Carotid Doppler, TSH/ T4: 0.74/6.00, Vitamin B12 344 Patient is a candidate for aspirin but it is contraindicated due to current GI bleed
[2016-07-13 18:51] LABS: HEMATOCRIT 29.5 % (35.0-51.0); MEAN CELL VOLUME 77.9 fL (80.0-94.0); MEAN CORPUSCULAR HEMOGLOBIN 23.8 pg (27.0-31.0); MEAN CORPUSCULAR HGB CONC 30.6 g/dL (33.0-37.0); MEAN PLATELET VOLUME 8.5 fL (7.2-11.7); WHITE BLOOD COUNT 7.1 K/uL (4.8-10.8)
--- NOTE | 2016-07-13 19:08 | PN ---
DATE: 07/13/2016 SUBJECTIVE: The patient is lying on the bed, in no acute distress. Denies having any further dizzin ess. PHYSICAL EXAMINATION: VITAL SIGNS: His blood pressure is 166/80, heart rate is 77 per minute, breathing at a rate of 16 pe r minute, temperature is 97.3 degrees Fahrenheit. HEENT: Head normocephalic, atraumatic. NECK: Supple. There are no carotid bruits. LUNGS: Clear. CARDIOVASCULAR: S1, S2 audible. No murmurs. ABDOMEN: Soft and nontender with bowel sounds present. NEUROLOGIC EXAMINATION: MENTAL STATUS: The patient is awake, alert, oriented to time, place, person. Speech is fluent. Nam ing and repetition normal. Memory: Recent memory is impaired. CRANIAL NERVE EXAMINATION: Pupils are 4 mm bilaterally reactive to light. Visual roca are full bu t extraocular movements are intact. There is no facial asymmetry. Palate is upgoing bilaterally and tongue is midline. MOTOR EXAMINATION: Tone is normal. Power is 5/5 bilaterally in all extremities. GAIT: Is deferred at the moment. COORDINATION: Rhklcb-[id number]-[id number] shows no dysmetria. IMPRESSION: 1. Status post dizziness, possibly secondary to underlying anemia. 2. Hypertension. 3. Cerebrovascular disease. 4. Gastrointestinal bleeding. 5. Memory loss. RECOMMENDATIONS: 1. The patient had MRI of the brain done, which the report is still awaited. I have reviewed the MR I myself and found no acute intracranial pathology. 2. The patient's dizziness is significantly better. 3. The patient is getting GI evaluation. 4. The patient's B12, T4 and TSH are within normal limits. 5. Please continue other treatment and control blood pressure. 6. Please continue other treatment. Thank you for the opportunity to participate in the care of this patient. Skyla Carrera MD cc: [id number] TT: 07/13/2016 19:08:29 Confirmation # [id number] Dictation # [id number]
--- NOTE | 2016-07-13 19:23 | MRI ---
PROCEDURE: MRI BRAIN WITHOUT CONTRAST HISTORY: dizziness COMPARISON: Comparison is made to the previous CT of the head without contrast dated 07/12/2016. TECHNIQUE: Multiplanar, multisequence MR images of the brain were obtained without intravenous contrast enhancement. FINDINGS: HEMORRHAGE: None DWI: No evidence of an acute or early subacute infarction. BRAIN PARENCHYMA: No mass effect or edema. Large white matter changes seen suggestive but nonspecific for chronic microvascular ischemic disease. VENTRICLES: Unremarkable. No hydrocephalus. CRANIUM: Unremarkable. ORBITS: Grossly unremarkable. PARANASAL SINUSES/MASTOIDS: Mild sinuses mucosal thickening more prominent at the left maxillary sinus. Mucosal retention cyst versus polyp seen at the right maxillary sinus. VASCULAR SYSTEM: Skull base flow voids intact. OTHER FINDINGS: None. IMPRESSION: No evidence of acute pathology mass lesion or midline shift. Mild atrophy. Extensive white matter changes suggestive but nonspecific for chronic microvascular ischemic disease. Mild sinuses mucosal thickening.
[2016-07-14 07:16] LABS: BASO % 0.6 % (0.0-2.0); EOS # 0.1 K/uL (0.0-0.7); EOS % 2.2 % (0.0-4.0); LYMPH # 1.2 K/uL (1.0-4.3); LYMPH % 18.9 % (20.0-40.0); MEAN CORPUSCULAR HEMOGLOBIN 23.3 pg (27.0-31.0); MEAN CORPUSCULAR HGB CONC 30.6 g/dL (33.0-37.0); MEAN PLATELET VOLUME 8.8 fL (7.2-11.7); MONO # 0.6 K/uL (0.0-0.8); MONO % 9.2 % (0.0-10.0); RED CELL DISTRIBUTION WIDTH 20.9 % (11.5-14.5); WHITE BLOOD COUNT 6.2 K/uL (4.8-10.8)
[2016-07-14 07:43] LABS: CHLORIDE 102 mmol/L (98-107); POTASSIUM 3.3 mmol/L (3.6-5.2); SODIUM 137 mmol/L (132-148)
[2016-07-14 07:45] LABS: GFR AFRICAN-AMERICAN > 60
[2016-07-14 07:46] LABS: ALB/GLOB RATIO 1.2 (1.0-2.1); ALKALINE PHOSPHATASE 66 U/L (38-126); ALT/SGPT 12 U/L (21-72); AST/SGOT 20 U/L (17-59); BLOOD UREA NITROGEN 8 mg/dL (9-20); CALCIUM 8.3 mg/dl (8.6-10.4); CARBON DIOXIDE 25 mmol/L (22-30); GLUCOSE,RANDOM 91 mg/dL (75-110); MAGNESIUM 1.7 mg/dL (1.6-2.3); TOTAL PROTEIN 6.8 g/dL (6.3-8.3)
--- NOTE | 2016-07-14 08:00 | CARD ---
APPROVED REPORT EKG Measurement Heart [id number] [place] [id number] <Conclusion> Normal sinus rhythm Left axis deviation Incomplete right bundle branch block Cannot rule out Anteroseptal infarct, age undetermined T wave abnormality, consider inferolateral ischemia Abnormal ECG
[2016-07-14] MEDS ORDERED: Midazolam 2 MG/2 ML VIAL ONE (08:12)
[2016-07-14] MEDS ORDERED: Etomidate 20 mg/10ml Inj IV ONE (08:12)
[2016-07-14] MEDS: Pantoprazole 40 mg EC Tab PO SCH ×2 (08:13→12:34)
[2016-07-14] MEDS ORDERED: Propofol 10 mg/ml Inj (20 ML) ONE (08:16)
[2016-07-14] MEDS ORDERED: Lactated Ringer's 500 ML IV ONE ×2 (08:28)
[2016-07-14] MEDS: Sodium Chloride 0.45% 1,000 ML IV SCH (08:54)
[2016-07-14] MEDS ORDERED: Potassium Chloride 20 mEq ER Tab PO STA (09:05)
--- NOTE | 2016-07-14 11:34 | CP.PCM.PN ---
<Ruth Urbina - Last Filed: 07/14/16 15:36> Subjective - Date & Time of Evaluation Date of Evaluation: 07/14/16 Time of Evaluation: 11:32 - Subjective Subjective: Patient seen and examined at bedside. Per nurse, patient having psjptn-dv-bjlhw bowel movements with Golytely preparation. Patient currently denies dizziness. He states it resolved since yesterday afternoon. He denies chest pain, palpitations, shortness of breath, abdominal pain, nausea, vomiting, diarrhea and constipation. Objective - Vital Signs/Intake and Output Vital Signs (last 24 hours): Temp Pulse Resp BP Pulse Ox 96.6 F L 100 H 18 237/111 H 92 L 07/14/16 09:00 07/14/16 09:00 07/14/16 09:00 07/14/16 09:00 07/14/16 09:00 Intake and Output: 07/14/16 07/14/16 06:59 18:59 Intake Total 600 Output Total 8 Balance 592 - Medications Medications: Current Medications Hydralazine HCl (Apresoline) 10 mg IVP Q6H PRN PRN Reason: Systolic Blood Pressure Last Admin: 07/14/16 06:02 Dose: 10 mg Sodium Chloride (Sodium Chloride 0.45%) 1,000 mls @ 75 mls/hr IV .[id number] [facility] Last Admin: 07/14/16 08:54 Dose: Not Given Labetalol HCl (Trandate) 100 mg PO BID [facility] Last Admin: 07/13/16 18:55 Dose: 100 mg Lorazepam (Ativan) 1 mg IVP Q3 PRN PRN Reason: Anxiety Pantoprazole Sodium (Protonix Ec Tab) 40 mg PO ACB [facility] Last Admin: 07/14/16 08:13 Dose: Not Given - Labs Labs: 07/14/16 07:05 07/14/16 07:05 PT 12.0 SECONDS (9.7-12.2) 07/12/16 10:19 INR 1.1 07/12/16 10:19 APTT 32 SECONDS (21-34) 07/12/16 10:19 - Constitutional Appears: Non-toxic, No Acute Distress - Head Exam Head Exam: ATRAUMATIC, NORMAL INSPECTION, NORMOCEPHALIC - Eye Exam Eye Exam: EOMI, Normal appearance - ENT Exam ENT Exam: Mucous Membranes Moist - Neck Exam Neck Exam: Full ROM, Normal Inspection - Respiratory Exam Respiratory Exam: Clear to Ausculation Bilateral, NORMAL BREATHING PATTERN. absent: Rales, Rhonchi, Wheezes - Cardiovascular Exam Cardiovascular Exam: Gallop, +S1, +S2 - GI/Abdominal Exam GI & Abdominal Exam: Soft, Normal Bowel Sounds. absent: Firm, Guarding, Tenderness - Extremities Exam Extremities Exam: Normal Inspection. absent: Pedal Edema, Tenderness - Neurological Exam Neurological Exam: Alert, Awake, Oriented x3 - Psychiatric Exam Psychiatric exam: Normal Affect, Normal Mood - Skin Skin Exam: Dry, Intact, Normal Color Assessment and Plan - Assessment and Plan (Free Text) Assessment: 1. Hypertensive Urgency Admit to Inpt/Tele Start Lisinopril 10 mg po BID Continue on Labetalol 100 mg po BID and Hydralazine 10 mg IVP Q6h PRN Continue Hydralazine 10 mg IVP q6 prn SBP >180 Start ASA 81 mg po daily Monitor 2. Bilateral Lacunar Infarcts Brain MRI: No ecidence of acute pathology mass lesion or midline shift. Mild atrophy. Extensive white matter changes suggestive but nonspecific for chronic microvascular ischemic disease. CT Head: Moderate nonspecific white matter changes. Bilateral lacunar type infarcts involving the bilateral basal ganglia/thalami Neuro (Dr. Spike Carrera) consulted- Brain MRI without contrast, Carotid Doppler, TSH/ T4: 0.74/6.00, Vitamin B12 344 Patient is a candidate for aspirin but it is contraindicated due to current GI bleed 3. GI Bleed Hemoglobin 9.5, Hematocrit 31.0 s/p Colonoscopy: Per GI Diverticulosis noted on colonoscopy. No blood noted. Suspect diverticular bleed. May start patient on baby Aspirin. s/p EGD - gastric ulcer but not source of bleed. Patient to have colonoscopy tomorrow. Protonix 40 mg IVP q12h GI (Dr. Fish) consulted- follow up recommendations Type and Screen f/u CBC q6h 4. Acute Microcytic Anemia secondary to GI bleed Hgb 9.9 on admission, today 9.6 Most likely secondary to GI bleed f/u iron studies GI on board Follow up repeat CBC Type and screen and transfusion consent Set aside 2 units of PRBC's 5. Alcohol abuse Per , patient drinks 1 pint of liquor per day UDS negative, Alcohol Quant <10 Continue Ativan 1 mg IVP q3 prn 6. Hypokalemia Repleted 3.3 kdur 40 meq given stat Recheck in AM 7. Prophylaxis SCD Protonix Chemical anticoagulation contraindicated due to GI bleed <Cesar Phelan - Last Filed: 08/17/16 12:35> Objective - Vital Signs/Intake and Output Vital Signs (last 24 hours): Temp Pulse Resp BP Pulse Ox 98.1 F 79 20 166/74 H 99 07/15/16 16:47 07/15/16 17:30 07/15/16 16:47 07/15/16 16:47 07/15/16 16:47 - Labs Labs: 07/15/16 06:42 07/15/16 06:42 PT 12.0 SECONDS (9.7-12.2) 07/12/16 10:19 INR 1.1 07/12/16 10:19 APTT 32 SECONDS (21-34) 07/12/16 10:19 Attending/Attestation - Attestation I have personally seen and examined this patient.: Yes I have fully participated in the care of the patient.: Yes I have reviewed all pertinent clinical information, including history, physical exam and plan: Yes Notes (Text): Patient seen and examined with the resident. Agree with the resident's evaluation, assessment and plan. 1. Hypertensive Urgency Admit to Inpt/Tele Start Lisinopril 10 mg po BID Continue on Labetalol 100 mg po BID and Hydralazine 10 mg IVP Q6h PRN Continue Hydralazine 10 mg IVP q6 prn SBP >180 Start ASA 81 mg po daily Monitor 2. Bilateral Lacunar Infarcts Brain MRI: No ecidence of acute pathology mass lesion or midline shift. Mild atrophy. Extensive white matter changes suggestive but nonspecific for chronic microvascular ischemic disease. CT Head: Moderate nonspecific white matter changes. Bilateral lacunar type infarcts involving the bilateral basal ganglia/thalami Neuro (Dr. Spike Carrera) consulted- Brain MRI without contrast, Carotid Doppler, TSH/ T4: 0.74/6.00, Vitamin B12 344 Patient is a candidate for aspirin but it is contraindicated due to current GI bleed 3. GI Bleed Hemoglobin 9.5, Hematocrit 31.0 s/p Colonoscopy: Per GI Diverticulosis noted on colonoscopy. No blood noted. Suspect diverticular bleed. May start patient on baby Aspirin. s/p EGD - gastric ulcer but not source of bleed. Patient to have colonoscopy tomorrow. Protonix 40 mg IVP q12h GI (Dr. Fish) consulted- follow up recommendations Type and Screen f/u CBC q6h
--- NOTE | 2016-07-14 21:27 | PN ---
DATE: 07/13/2016 SUBJECTIVE: The patient is lying on the bed, in no acute distress. Denies having any further dizzin ess. PHYSICAL EXAMINATION: VITAL SIGNS: His blood pressure is 151/79, heart rate is 84 per minute, breathing at a rate of 16 pe r minute, temperature is 98.5 degrees Fahrenheit. HEENT: Normocephalic, atraumatic. NECK: Supple. There are no carotid bruits. LUNGS: Clear. CARDIOVASCULAR: S1, S2 audible. No murmurs. ABDOMEN: Soft, nontender. Bowel sounds present. NEUROLOGIC EXAMINATION: MENTAL STATUS: The patient is awake, alert, oriented to time, place, person. Speech is fluent. Nam ing and repetition normal. CRANIAL NERVE EXAMINATION: Pupils are 3 mm bilaterally reactive to light. Visual roca are full. Extraocular movements are intact. There is no facial asymmetry. Palate is upgoing bilaterally. ____ _ MOTOR EXAMINATION: Tone is normal. Power is 5/5 bilaterally in all extremities. Reflexes are . Plantars downgoing bilaterally. CEREBELLAR: Foeoyh-km-dybq shows no dysmetria. LABORATORY DATA: Labs reviewed. MRI of the brain shows no evidence of acute pathology, mass, lesion , or midline shift. Mild atrophy. Extensive white matter changes suggestive, but nonspecific, for c hronic microvascular ischemic changes. IMPRESSION: 1. Status post dizziness, likely secondary to his underlying anemia. 2. Hypertension. 3. Cerebrovascular disease. 4. Gastrointestinal bleeding. 5. Memory loss. RECOMMENDATIONS: 1. The patient's dizziness is significantly better. 2. The patient is feeling a lot better. 3. No further neurologic recommendations at present. 4. I will follow the patient in the office for his underlying memory loss. 5. Please continue supportive care. Thank you for the opportunity to participate in the care of this patient. Skyla Carrera MD cc: [id number] TT: 07/14/2016 21:26:34 Confirmation # [id number] Dictation # [id number]
[2016-07-15 00:55] VITALS: RESP 20
[2016-07-15] MEDS: Pantoprazole 40 mg EC Tab PO SCH (06:30)
[2016-07-15 06:56] LABS: BASO % 0.5 % (0.0-2.0); EOS # 0.1 K/uL (0.0-0.7); EOS % 2.1 % (0.0-4.0); HEMATOCRIT 29.6 % (35.0-51.0); LYMPH # 1.2 K/uL (1.0-4.3); LYMPH % 17.3 % (20.0-40.0); MEAN CELL VOLUME 75.7 fL (80.0-94.0); MEAN CORPUSCULAR HEMOGLOBIN 23.5 pg (27.0-31.0); MEAN CORPUSCULAR HGB CONC 31.1 g/dL (33.0-37.0); MEAN PLATELET VOLUME 8.4 fL (7.2-11.7); MONO # 0.8 K/uL (0.0-0.8); MONO % 12.4 % (0.0-10.0); RED CELL DISTRIBUTION WIDTH 20.8 % (11.5-14.5); WHITE BLOOD COUNT 6.7 K/uL (4.8-10.8)
[2016-07-15 07:15] LABS: CHLORIDE 102 mmol/L (98-107); POTASSIUM 3.7 mmol/L (3.6-5.2); SODIUM 139 mmol/L (132-148)
[2016-07-15 07:17] LABS: AST/SGOT 18 U/L (17-59); BILIRUBIN,TOTAL 1.2 mg/dL (0.2-1.3); CARBON DIOXIDE 25 mmol/L (22-30); GFR AFRICAN-AMERICAN > 60
[2016-07-15 07:18] LABS: ALB/GLOB RATIO 1.2 (1.0-2.1); ALKALINE PHOSPHATASE 61 U/L (38-126); ALT/SGPT 13 U/L (21-72); BLOOD UREA NITROGEN 10 mg/dL (9-20); CALCIUM 8.3 mg/dl (8.6-10.4); GLUCOSE,RANDOM 85 mg/dL (75-110); MAGNESIUM 2.2 mg/dL (1.6-2.3); TOTAL PROTEIN 6.4 g/dL (6.3-8.3)
[2016-07-15 08:54] VITALS: TEMP 98.1; O2SAT 99
--- NOTE | 2016-07-15 10:49 | CARD ---
APPROVED REPORT EXAM: Two-dimensional and M-mode echocardiogram with Doppler and color Doppler. Other Information Quality : GoodRhythm : NSR INDICATION Dizziness and Vertigo CARDIOMEGALY RISK FACTORS Hypertension M-Mode DIMENSIONS RVDd1.21 (2.1-3.2cm)Left Atrium (MM)4.01 (2.5-4.0cm) IVSd1.97 (0.7-1.1cm)Aortic Root3.01 (2.2-3.7cm) LVDd4.74 (4.0-5.6cm)Aortic Cusp Exc.1.85 (1.5-2.0cm) PWd1.37 (0.7-1.1cm)FS (%) 45 % LVDs2.61 (2.0-3.8cm)LVEF (%)76 (>50%) Mitral Valve MV E Hrgojxmo866.8cm/sMV A Vkkwhurl597.3cm/sE/A ratio0.9 TDI E/Lateral E'0.0E/Medial E'0.0 Tricuspid Valve TR Peak Nihjocob311on/sTR Peak Gr.85ecHsKCMX66lmQv LEFT VENTRICLE The left ventricle is normal size. There is moderate to severe concentric left ventricular hypertrophy. The left ventricular function is normal. The left ventricular ejection fraction is within the normal range. About70%. No regional wall motion abnormalities noted. Transmitral Doppler flow pattern is Grade II-pseudonormal filling dynamics. No left ventricle thrombus noted on this study. Abnormal tissue doppler isc/w elevated la pressure. There is no ventricular septal defect visualized. There is no left ventricular aneurysm. There is no mass noted in the left ventricle. RIGHT VENTRICLE The right ventricle is normal size. There is normal right ventricular wall thickness. The right ventricular systolic function is normal. ATRIA LA index is severely increased The right atrium size is normal. The interatrial septum is intact with no evidence for an atrial septal defect. AORTIC VALVE The aortic valve is normal in structure and function. No aortic regurgitation is present. There is no aortic valvular stenosis. There is no aortic valvular vegetation. MITRAL VALVE The mitral valve is normal in structure and function. There is no evidence of mitral valve prolapse. There is no mitral valve stenosis. There is no mitral valve regurgitation noted. TRICUSPID VALVE The tricuspid valve is normal in structure and function. There is no tricuspid valve regurgitation noted. There is no tricuspid valve prolapse or vegetation. There is no tricuspid valve stenosis. PULMONIC VALVE The pulmonary valve is normal in structure and function. There is no pulmonic valvular regurgitation. There is no pulmonic valvular stenosis. GREAT VESSELS The aortic root is normal in size. The ascending aorta is normal in size. The pulmonary artery is normal. The IVC is normal in size and collapses >50% with inspiration. PERICARDIAL EFFUSION The pericardium appears normal. There is no pleural effusion. <Conclusion> Normal LV EF and Doppler. Moderate to severe concentric LVH Markedly dilated LA Elevated LA pressure.
--- NOTE | 2016-07-15 11:19 | CP.PCM.PN ---
<Joce Cadet - Last Filed: 07/15/16 12:59> Subjective - Date & Time of Evaluation Date of Evaluation: 07/15/16 Time of Evaluation: 10:00 - Subjective Subjective: PGY4 GI Fellow Progress Note Patient seen and examined bedside this morning. The patient denies any complaints at this time. He has not had any further episodes of rectal bleeding or melena. No events overnight. 12 system ROS performed and negative except where stated. Objective - Vital Signs/Intake and Output Vital Signs (last 24 hours): Temp Pulse Resp BP Pulse Ox 98.1 F 90 20 178/86 H 99 07/15/16 08:53 07/15/16 08:53 07/15/16 08:53 07/15/16 08:53 07/15/16 08:53 Intake and Output: 07/15/16 07/15/16 06:59 18:59 Intake Total 100 Output Total 1000 Balance -900 - Medications Medications: Current Medications Aspirin (Ecotrin) 81 mg PO DAILY [facility] Last Admin: 07/15/16 10:07 Dose: 81 mg Hydralazine HCl (Apresoline) 10 mg IVP Q6H PRN PRN Reason: Systolic Blood Pressure Last Admin: 07/15/16 01:19 Dose: 10 mg Labetalol HCl (Trandate) 100 mg PO BID [facility] Last Admin: 07/15/16 10:08 Dose: 100 mg Lisinopril (Zestril) 10 mg PO DAILY [facility] Last Admin: 07/15/16 10:08 Dose: 10 mg Lorazepam (Ativan) 1 mg IVP Q3 PRN PRN Reason: Anxiety Pantoprazole Sodium (Protonix Ec Tab) 40 mg PO ACB [facility] Last Admin: 07/15/16 06:30 Dose: 40 mg - Labs Labs: 07/15/16 06:42 07/15/16 06:42 PT 12.0 SECONDS (9.7-12.2) 07/12/16 10:19 INR 1.1 07/12/16 10:19 APTT 32 SECONDS (21-34) 07/12/16 10:19 - Constitutional Appears: Non-toxic, No Acute Distress - Eye Exam Eye Exam: EOMI, PERRL - ENT Exam ENT Exam: Mucous Membranes Moist - Respiratory Exam Respiratory Exam: Clear to Ausculation Bilateral. absent: Rales, Rhonchi, Wheezes - Cardiovascular Exam Cardiovascular Exam: RRR, +S1, +S2 - GI/Abdominal Exam GI & Abdominal Exam: Soft, Normal Bowel Sounds. absent: Distended, Firm, Guarding, Rigid, Tenderness, Organomegaly - Extremities Exam Extremities Exam: Normal Inspection. absent: Pedal Edema - Neurological Exam Neurological Exam: Alert, Awake, Oriented x3 - Psychiatric Exam Psychiatric exam: Normal Affect, Normal Mood - Skin Skin Exam: Dry, Warm Assessment and Plan - Assessment and Plan (Free Text) Assessment: Patient is a 70 year old male with unclear PMHx who presented to the ED for dizziness. -Acute blood loss anemia -Diverticulosis, suspect diverticular bleed - resolved -Hypertensive urgency Plan: -S/P EGD/Colonoscopy without any significant bleeding appreciated - significant diverticulosis noted and suspect diverticular bleeding which has since resolved -Encourage augmented water/fiber diet -Miralax 17g PO QD PRN constipation -No medical records sent from [facility] despite request; pt now unsure if this is correct hospital -Evidence of sigmoid resection noted with healthy appearing anastamosis on colonoscopy -Primary service to control HTN -OK to start ASA -No further recommendations; will sign off. Thank you for allowing us to participate in the care of your patient. <Danilo Dorado - Last Filed: 07/15/16 15:20> Objective - Vital Signs/Intake and Output Vital Signs (last 24 hours): Temp Pulse Resp BP Pulse Ox 98.1 F 90 20 178/86 H 99 07/15/16 08:53 07/15/16 08:53 07/15/16 08:53 07/15/16 08:53 07/15/16 08:53 Intake and Output: 07/15/16 07/15/16 06:59 18:59 Intake Total 100 Output Total 1000 Balance -900 - Medications Medications: Current Medications Amlodipine Besylate (Norvasc) 5 mg PO DAILY [facility] Aspirin (Ecotrin) 81 mg PO DAILY [facility] Last Admin: 07/15/16 10:07 Dose: 81 mg Hydralazine HCl (Apresoline) 10 mg IVP Q6H PRN PRN Reason: Systolic Blood Pressure Last Admin: 07/15/16 01:19 Dose: 10 mg Labetalol HCl (Trandate) 100 mg PO BID [facility] Last Admin: 07/15/16 10:08 Dose: 100 mg Lisinopril (Zestril) 10 mg PO DAILY [facility] Last Admin: 07/15/16 10:08 Dose: 10 mg Lorazepam (Ativan) 1 mg IVP Q3 PRN PRN Reason: Anxiety Pantoprazole Sodium (Protonix Ec Tab) 40 mg PO ACB [facility] Last Admin: 07/15/16 06:30 Dose: 40 mg - Labs Labs: 07/15/16 06:42 07/15/16 06:42 PT 12.0 SECONDS (9.7-12.2) 07/12/16 10:19 INR 1.1 07/12/16 10:19 APTT 32 SECONDS (21-34) 07/12/16 10:19 Attending/Attestation - Attestation I have personally seen and examined this patient.: Yes I have fully participated in the care of the patient.: Yes I have reviewed all pertinent clinical information, including history, physical exam and plan: Yes Notes (Text): Patient seen and examined with GI fellow. Agree with his note as documented above with the following additions/exceptions. This is a 70 year old male who is admitted dizziness, hypertensive urgency and GI bleeding. He is s/p EGD/ colonoscopy showing Worth III gastric ulcer, gastritis (bx neg for H pylori), hiatal hernia and diverticulosis with evidence of prior surgical anastomosis in colon. There is no active bleeding on endoscopic evaluation and he has had no further bleeding episodes. Likely diverticular bleeding, now resolved. He is tolerating PO without difficulty. His H/H is stable. Recommend PPI therapy for gastric ulcer with surveillance EGD in 2-3 months. Diet as tolerated. Please call with any further questions/concerns. 07/15/16 15:17
--- NOTE | 2016-07-15 12:42 | VASCLAB ---
PROCEDURE: HISTORY: Cerebrovascular disease COMPARISON: None available. TECHNIQUE: Grayscale and duplex Doppler evaluation of the cervical carotid and vertebral arteries were performed. The common carotid, carotid bifurcations and cervical Internal Carotid Artery (ICA) and proximal External Carotid Artery (ECA) were evaluated. The vertebral arteries were evaluated for gross patency and flow direction. Report prepared by CHELA Lutz FINDINGS: RIGHT CAROTID ARTERIES: 1. Common Carotid Artery: No significant focal plaque formation of the right common carotid artery. Maximum Peak Systolic velocity: 150 cm/sec: End-diastolic velocity 14 cm/sec. 2. Carotid Bifurcation: plaque formation. Maximum Peak Systolic velocity: 75 cm/sec: End-diastolic velocity 9 cm/sec. 3. Internal Carotid Artery: Plaque description: 3.1. Proximal Segment: Peak systolic velocity 98 cm/sec: End-diastolic velocity 19 cm/sec - % stenosis 0-15% 3.2. Middle Segment: Peak systolic velocity 143 cm/sec: End-diastolic velocity 45 cm/sec - % stenosis 0-15% 3.3. Distal Segment: Peak systolic velocity 85 cm/sec: End-diastolic velocity 20 cm/sec - % stenosis 0-15% 4. External Carotid Artery: No significant focal plaque formation. Peak systolic velocity 121 cm/sec 5. ICA/CCA Ratio: 1.4 LEFT CAROTID ARTERIES: 1. Common Carotid Artery: No significant focal plaque formation of the left common carotid artery. Maximum Peak Systolic velocity: 138 cm/sec: End-diastolic velocity 17 cm/sec. 2. Carotid Bifurcation: plaque formation. Maximum Peak Systolic velocity: 80 cm/sec: End-diastolic velocity 9 cm/sec. 3. Internal Carotid Artery: Plaque description: 3.1. Proximal Segment: Peak systolic velocity 95 cm/sec: End-diastolic velocity 18 cm/sec - % stenosis 0-15% 3.2. Middle Segment: Peak systolic velocity 101 cm/sec: End-diastolic velocity 27 cm/sec - % stenosis 0-15% 3.3. Distal Segment: Peak systolic velocity 130 cm/sec: End-diastolic velocity 30 cm/sec - % stenosis 0-15% 4. External Carotid Artery: No significant focal plaque formation. Peak systolic velocity 121 cm/sec 5. ICA/CCA Ratio: 1.2 VERTEBRAL ARTERIES: 1. Right Vertebral Artery: The right vertebral artery flow direction is antegrade. 2. Left Vertebral Artery: The left vertebral artery flow direction is antegrade. OTHER FINDINGS: 1. Right Brachial Blood pressure: 180 mmHg. 2. Left Brachial Blood pressure: 200 mmHg. IMPRESSION: RIGHT: Duplex scan does not suggest hemodynamically significant stenosis of the right extracranial carotid arteries. LEFT: Duplex scan does not suggest hemodynamically significant stenosis of the left extracranial carotid arteries.
[2016-07-15 16:49] VITALS: BP 166/74
--- NOTE | 2016-07-15 23:06 | CP.PCM.DIS ---
<CiaraRuth - Last Filed: 07/15/16 23:04> Provider - Provider Date of Admission: 07/12/16 12:29 Attending physician: Cesar Phelan MD Primary care physician: ? Consults: Neurology: Dr. Carrera Gastroenterology: Dr. Mccrary Time Spent in preparation of Discharge (in minutes): 31 Diagnosis - Discharge Diagnosis (1) Hypertensive urgency Status: c (2) Lacunar infarction Status: c (3) Diverticulosis Status: c (4) Anemia Status: c Hospital Course - Lab Results Lab Results: Most Recent Lab Values WBC 6.7 K/uL (4.8-10.8) 07/15/16 06:42 RBC 3.91 Mil/uL (4.40-5.90) L 07/15/16 06:42 Hgb 9.2 g/dL (12.0-18.0) L 07/15/16 06:42 Hct 29.6 % (35.0-51.0) L 07/15/16 06:42 MCV 75.7 fL (80.0-94.0) L 07/15/16 06:42 MCH 23.5 pg (27.0-31.0) L 07/15/16 06:42 MCHC 31.1 g/dL (33.0-37.0) L 07/15/16 06:42 RDW 20.8 % (11.5-14.5) H 07/15/16 06:42 Plt Count 195 K/uL (130-400) 07/15/16 06:42 MPV 8.4 fL (7.2-11.7) 07/15/16 06:42 Neut % (Auto) 67.7 % (50.0-75.0) 07/15/16 06:42 Lymph % (Auto) 17.3 % (20.0-40.0) L 07/15/16 06:42 [place] % (Auto) 12.4 % (0.0-10.0) H 07/15/16 06:42 Eos % (Auto) 2.1 % (0.0-4.0) 07/15/16 06:42 Baso % (Auto) 0.5 % (0.0-2.0) 07/15/16 06:42 Neut # 4.5 K/uL (1.8-7.0) 07/15/16 06:42 Lymph # 1.2 K/uL (1.0-4.3) 07/15/16 06:42 [place] # 0.8 K/uL (0.0-0.8) 07/15/16 06:42 Eos # 0.1 K/uL (0.0-0.7) 07/15/16 06:42 Baso # 0.0 K/uL (0.0-0.2) 07/15/16 06:42 PT 12.0 SECONDS (9.7-12.2) 07/12/16 10:19 INR 1.1 07/12/16 10:19 APTT 32 SECONDS (21-34) 07/12/16 10:19 Sodium 139 mmol/L (132-148) 07/15/16 06:42 Potassium 3.7 mmol/L (3.6-5.2) 07/15/16 06:42 Chloride 102 mmol/L (98-107) 07/15/16 06:42 Carbon Dioxide 25 mmol/L (22-30) 07/15/16 06:42 Anion Gap 15 (10-20) 07/15/16 06:42 BUN 10 mg/dL (9-20) 07/15/16 06:42 Creatinine 1.0 MG/DL (0.8-1.5) 07/15/16 06:42 Est GFR ( Amer) > 60 07/15/16 06:42 Est GFR (Non-Af Amer) > 60 07/15/16 06:42 Random Glucose 85 mg/dL (75-110) 07/15/16 06:42 Hemoglobin A1c 5.7 % (4.2-6.5) 07/13/16 06:11 Calcium 8.3 mg/dl (8.6-10.4) L 07/15/16 06:42 Magnesium 2.2 mg/dL (1.6-2.3) 07/15/16 06:42 Total Bilirubin 1.2 mg/dL (0.2-1.3) 07/15/16 06:42 Direct Bilirubin 0.3 mg/dL (0.0-0.4) 07/13/16 18:36 AST 18 U/L (17-59) 07/15/16 06:42 ALT 13 U/L (21-72) L 07/15/16 06:42 Alkaline Phosphatase 61 U/L (38-126) 07/15/16 06:42 Ammonia < 9 umol/L (9-33) L 07/12/16 19:13 Troponin I 0.0200 ng/mL (0.00-0.120) 07/12/16 10:19 NT-Pro-B Natriuret Pep 581 pg/mL (0-900) 07/12/16 10:19 Total Protein 6.4 g/dL (6.3-8.3) 07/15/16 06:42 Albumin 3.5 g/dL (3.5-5.0) 07/15/16 06:42 Globulin 2.9 gm/dL (2.2-3.9) 07/15/16 06:42 Albumin/Globulin Ratio 1.2 (1.0-2.1) 07/15/16 06:42 Triglycerides 83 mg/dL (0-149) 07/13/16 06:11 Cholesterol 147 mg/dL (0-199) 07/13/16 06:11 LDL Cholesterol Direct 73 mg/dL (0-129) 07/13/16 06:11 HDL Cholesterol 50 mg/dL (30-70) 07/13/16 06:11 Vitamin B12 344 pg/mL (239-931) 07/13/16 06:11 Thyroxine (T4) 6.00 ug/dL (5.5-11.0) 07/13/16 06:11 TSH 3rd Generation 0.74 mIU/L (0.46-4.68) 07/13/16 06:11 Urine Color Yellow (YELLOW) 07/12/16 13:22 Urine Clarity Clear (Clear) 07/12/16 13:22 Urine pH 7.0 (5.0-8.0) 07/12/16 13:22 Ur Specific [place] 1.015 (1.003-1.030) 07/12/16 13:22 Urine Protein 1+ mg/dL (NEGATIVE) H 07/12/16 13:22 Urine Glucose (UA) Normal mg/dL (Normal) 07/12/16 13:22 Urine Ketones Negative mg/dL (NEGATIVE) 07/12/16 13:22 Urine Blood Negative (NEGATIVE) 07/12/16 13:22 Urine Nitrate Negative (NEGATIVE) 07/12/16 13:22 Urine Bilirubin Negative (NEGATIVE) 07/12/16 13:22 Urine Urobilinogen Normal mg/dL (0.2-1.0) 07/12/16 13:22 Ur Leukocyte Esterase Neg Robert/uL (Negative) 07/12/16 13:22 Urine WBC (Auto) 1 /hpf (0-5) 07/12/16 13:22 Urine RBC (Auto) 1 /hpf (0-3) 07/12/16 13:22 Ur Squamous Epith Cells < 1 /hpf (0-5) 07/12/16 13:22 Urine Opiates Screen Negative (NEGATIVE) 07/12/16 21:04 Urine Methadone Screen Negative (NEGATIVE) 07/12/16 21:04 Ur Barbiturates Screen Negative (NEGATIVE) 07/12/16 21:04 Ur Phencyclidine Scrn Negative (NEGATIVE) 07/12/16 21:04 Ur Amphetamines Screen Negative (NEGATIVE) 07/12/16 21:04 U Benzodiazepines Scrn Negative (NEGATIVE) 07/12/16 21:04 U Oth Cocaine Metabols Negative (NEGATIVE) 07/12/16 21:04 U Cannabinoids Screen Negative (NEGATIVE) 07/12/16 21:04 Alcohol, Quantitative < 10 mg/dl (0-10) 07/12/16 19:13 Blood Type O POSITIVE 07/12/16 15:50 Antibody Screen Negative 07/12/16 15:50 - Hospital Course Hospital Course: CC: "I got dizzy." HPI: Patient is a 70 year old male with unknown past medical history who presents to the ED for dizziness. States that today he woke up feeling fine and walked to walk. Half way there, he became dizzy so he had to sit down because he felt like he was crawling. 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 Denies chest pain, SOB, headache, numbness/tingling, confusion , weakness, nausea, vomiting, palpitations or difficulty ambulating. Pmhx: unknown as above Surg hx: unkknown Family hx: unknown Social hx: Smokes 2-3 cigarettes per day since the age of 19, drinks one 8 ounce glass of either beer, liquor or wine per week Meds: unknown Allergies: NKDA PMD: Unknown ED course: Hydralazine 10 mg IVP x 1, Labetalol 20 mg IVP x 1 During the hospital course, the following imaging was done: CXR (07/12/16): No focal consolidation, significant pleural effusion or definite pneumothorax identified. Cardiomegaly. Probable right pleural plaque. Small nodular density at the right lung base appears calcified. CT Head (07/12/16): Moderate nonspecific white matter changes. Bilateral lacunar type infarcts involving the bilateral basal ganglia/thalami Carotid Doppler Study (07/12/16): Duplex scan does not suggest hemodynamically significant stenosis of right or left extracranial carotid arteries Brain MRI (07/13/16): No evidence of acute pathology mass lesion or midline shift. Mild atrophy. Extensive white matter changes suggestive but nonspecific for chronic microvascular ischemic disease. Mild sinuses mucosal thickening. EGD/Colonoscopy: Catron III gastric ulcer, gastritis (bx neg for H pylori), hiatal hernia and diverticulosis with evidence of prior surgical anastomosis in colon. There is no active bleeding on endoscopic evaluation. Patient was started on Labetalol and Hydralazine for hypertensive urgency ( initial blood pressure of 210/190. Blood pressure was decreased gradually. Neurology, Dr. Carrera was consulted as CT Head indicated bilateral lacunar type infarcts of basal ganglia/thalami. Patient could not initially be started on aspirin as he was noted to be having bloody stools and acute anemia, hemoglobin of 9.9. Patient was started on daily Protonix 40 mg IVP q12h and urgent endoscopy/colonoscopy was performed, which indicated gastric ulcer, gastritis negative for H. Pylori, hiatal hernia and diverticulosis (likely source of bleed ). Further neurologic work-up was negative for acute events. After clearance from GI, patient was started on baby aspirin. Lisinopril and Norvasc were also added for better blood pressure control. Patient was discharged home with instruction to follow-up with outpatient physical therapy and establish care with Dr. Wells as his primary care physician. Please note this is a summary of the hospital course. For full details, please see patient chart. Discharge Instructions: Patient medically stable for discharge. Patient instructed to take the following medications: Aspirin 81 mg tab by mouth daily Lisinopril 10 mg tab by mouth daily Amlodipine 5 mg tab by mouth daily Labetalol 100 mg tab by mouth twice daily Crestor 5 mg tab by mouth at night Protonix 40 mg tab by mouth daily Patient instructed to establish care with primary care physician, Dr. Wells. Patient instructed to follow-up with gastroenterology, Dr. Mccrary, for follow-up endoscopy in 2-3 months. Patient instructed that he will need outpatient physical therapy. Patient instructed to get follow-up CBC within one week of discharge. Patient instructed to return to emergency department if symptoms recur. Patient given detailed instructions at bedside. Patient understands and agrees. - Date & Time of H&P Date of H&P: 07/12/16 Time of H&P: 16:54 Discharge Exam - Head Exam Head Exam: ATRAUMATIC, NORMAL INSPECTION, NORMOCEPHALIC - Eye Exam Eye Exam: EOMI, Normal appearance, PERRL - ENT Exam ENT Exam: Mucous Membranes Moist - Respiratory Exam Respiratory Exam: Clear to PA & Lateral, NORMAL BREATHING PATTERN, UNREMARKABLE. absent: Rales, Rhonchi, Wheezes - Cardiovascular Exam Cardiovascular Exam: Gallop, +S1, +S2. absent: Tachycardia - GI/Abdominal Exam GI & Abdominal Exam: Normal Bowel Sounds, Unremarkable - Extremities Exam Extremities exam: normal capillary refill, normal inspection, pedal pulses present - Neurological Exam Neurological exam: Alert, Oriented x3, Reflexes Normal - Psychiatric Exam Psychiatric exam: Normal Affect, Normal Mood - Skin Skin Exam: Dry, Intact, Normal Color, Warm Discharge Plan - Discharge Medications Prescriptions: Rosuvastatin Calcium [Crestor] 5 mg PO HS #30 tab Aspirin [Ecotrin] 81 mg PO DAILY #30 tabec amLODIPine [Norvasc] 5 mg PO DAILY #30 tab Pantoprazole [Protonix EC Tab] 40 mg PO ACB #30 ect Labetalol [Trandate] 100 mg PO BID #60 tab Lisinopril [Zestril] 10 mg PO DAILY #30 tab - Follow Up Plan Condition: FAIR Disposition: HOME/ ROUTINE Instructions: How to Stop Smoking (DC), Gastrointestinal Bleeding (DC), Colonoscopy (DC), High Fiber Diet (DC), Cigarette Smoking and Your Health (GEN) , Upper Endoscopy (DC), Hypertension (DC), Stroke (DC) Additional Instructions: Patient medically stable for discharge. Patient instructed to take the following medications: Aspirin 81 mg tab by mouth daily Lisinopril 10 mg tab by mouth daily Amlodipine 5 mg tab by mouth daily Labetalol 100 mg tab by mouth twice daily Crestor 5 mg tab by mouth at night Protonix 40 mg tab by mouth daily Patient instructed to establish care with primary care physician, Dr. Wells. Patient instructed to follow-up with gastroenterology, Dr. Mccrary, for follow-up endoscopy in 2-3 months. Patient instructed that he will need outpatient physical therapy. Patient instructed to get follow-up CBC within one week of discharge. Patient instructed to return to emergency department if symptoms recur. Patient given detailed instructions at bedside. Patient understands and agrees. Referrals: Reza Mccrary MD [Staff Provider] - Skyla Carrera MD [Staff Provider] - Jennifer Wells MD [Staff Provider] - <Cesar Phelan - Last Filed: 08/17/16 13:10> Provider - Provider Date of Admission: 07/12/16 12:29 Attending physician: Cesar Phelan MD Hospital Course - Lab Results Lab Results: Most Recent Lab Values WBC 6.7 K/uL (4.8-10.8) 07/15/16 06:42 RBC 3.91 Mil/uL (4.40-5.90) L 07/15/16 06:42 Hgb 9.2 g/dL (12.0-18.0) L 07/15/16 06:42 Hct 29.6 % (35.0-51.0) L 07/15/16 06:42 MCV 75.7 fL (80.0-94.0) L 07/15/16 06:42 MCH 23.5 pg (27.0-31.0) L 07/15/16 06:42 MCHC 31.1 g/dL (33.0-37.0) L 07/15/16 06:42 RDW 20.8 % (11.5-14.5) H 07/15/16 06:42 Plt Count 195 K/uL (130-400) 07/15/16 06:42 MPV 8.4 fL (7.2-11.7) 07/15/16 06:42 Neut % (Auto) 67.7 % (50.0-75.0) 07/15/16 06:42 Lymph % (Auto) 17.3 % (20.0-40.0) L 07/15/16 06:42 [place] % (Auto) 12.4 % (0.0-10.0) H 07/15/16 06:42 Eos % (Auto) 2.1 % (0.0-4.0) 07/15/16 06:42 Baso % (Auto) 0.5 % (0.0-2.0) 07/15/16 06:42 Neut # 4.5 K/uL (1.8-7.0) 07/15/16 06:42 Lymph # 1.2 K/uL (1.0-4.3) 07/15/16 06:42 [place] # 0.8 K/uL (0.0-0.8) 07/15/16 06:42 Eos # 0.1 K/uL (0.0-0.7) 07/15/16 06:42 Baso # 0.0 K/uL (0.0-0.2) 07/15/16 06:42 PT 12.0 SECONDS (9.7-12.2) 07/12/16 10:19 INR 1.1 07/12/16 10:19 APTT 32 SECONDS (21-34) 07/12/16 10:19 von Willebrand Antigen 116 % (50-217) 07/13/16 18:36 Sodium 139 mmol/L (132-148) 07/15/16 06:42 Potassium 3.7 mmol/L (3.6-5.2) 07/15/16 06:42 Chloride 102 mmol/L (98-107) 07/15/16 06:42 Carbon Dioxide 25 mmol/L (22-30) 07/15/16 06:42 Anion Gap 15 (10-20) 07/15/16 06:42 BUN 10 mg/dL (9-20) 07/15/16 06:42 Creatinine 1.0 MG/DL (0.8-1.5) 07/15/16 06:42 Est GFR ( Amer) > 60 07/15/16 06:42 Est GFR (Non-Af Amer) > 60 07/15/16 06:42 Random Glucose 85 mg/dL (75-110) 07/15/16 06:42 Hemoglobin A1c 5.7 % (4.2-6.5) 07/13/16 06:11 Calcium 8.3 mg/dl (8.6-10.4) L 07/15/16 06:42 Magnesium 2.2 mg/dL (1.6-2.3) 07/15/16 06:42 Total Bilirubin 1.2 mg/dL (0.2-1.3) 07/15/16 06:42 Direct Bilirubin 0.3 mg/dL (0.0-0.4) 07/13/16 18:36 AST 18 U/L (17-59) 07/15/16 06:42 ALT 13 U/L (21-72) L 07/15/16 06:42 Alkaline Phosphatase 61 U/L (38-126) 07/15/16 06:42 Ammonia < 9 umol/L (9-33) L 07/12/16 19:13 Troponin I 0.0200 ng/mL (0.00-0.120) 07/12/16 10:19 NT-Pro-B Natriuret Pep 581 pg/mL (0-900) 07/12/16 10:19 Total Protein 6.4 g/dL (6.3-8.3) 07/15/16 06:42 Albumin 3.5 g/dL (3.5-5.0) 07/15/16 06:42 Globulin 2.9 gm/dL (2.2-3.9) 07/15/16 06:42 Albumin/Globulin Ratio 1.2 (1.0-2.1) 07/15/16 06:42 Triglycerides 83 mg/dL (0-149) 07/13/16 06:11 Cholesterol 147 mg/dL (0-199) 07/13/16 06:11 LDL Cholesterol Direct 73 mg/dL (0-129) 07/13/16 06:11 HDL Cholesterol 50 mg/dL (30-70) 07/13/16 06:11 Vitamin B12 344 pg/mL (239-931) 07/13/16 06:11 Thyroxine (T4) 6.00 ug/dL (5.5-11.0) 07/13/16 06:11 TSH 3rd Generation 0.74 mIU/L (0.46-4.68) 07/13/16 06:11 Urine Color Yellow (YELLOW) 07/12/16 13:22 Urine Clarity Clear (Clear) 07/12/16 13:22 Urine pH 7.0 (5.0-8.0) 07/12/16 13:22 Ur Specific [place] 1.015 (1.003-1.030) 07/12/16 13:22 Urine Protein 1+ mg/dL (NEGATIVE) H 07/12/16 13:22 Urine Glucose (UA) Normal mg/dL (Normal) 07/12/16 13:22 Urine Ketones Negative mg/dL (NEGATIVE) 07/12/16 13:22 Urine Blood Negative (NEGATIVE) 07/12/16 13:22 Urine Nitrate Negative (NEGATIVE) 07/12/16 13:22 Urine Bilirubin Negative (NEGATIVE) 07/12/16 13:22 Urine Urobilinogen Normal mg/dL (0.2-1.0) 07/12/16 13:22 Ur Leukocyte Esterase Neg Robert/uL (Negative) 07/12/16 13:22 Urine WBC (Auto) 1 /hpf (0-5) 07/12/16 13:22 Urine RBC (Auto) 1 /hpf (0-3) 07/12/16 13:22 Ur Squamous Epith Cells < 1 /hpf (0-5) 07/12/16 13:22 Urine Opiates Screen Negative (NEGATIVE) 07/12/16 21:04 Urine Methadone Screen Negative (NEGATIVE) 07/12/16 21:04 Ur Barbiturates Screen Negative (NEGATIVE) 07/12/16 21:04 Ur Phencyclidine Scrn Negative (NEGATIVE) 07/12/16 21:04 Ur Amphetamines Screen Negative (NEGATIVE) 07/12/16 21:04 U Benzodiazepines Scrn Negative (NEGATIVE) 07/12/16 21:04 U Oth Cocaine Metabols Negative (NEGATIVE) 07/12/16 21:04 U Cannabinoids Screen Negative (NEGATIVE) 07/12/16 21:04 Alcohol, Quantitative < 10 mg/dl (0-10) 07/12/16 19:13 Blood Type O POSITIVE 07/12/16 15:50 Antibody Screen Negative 07/12/16 15:50 Attending/Attestation - Attestation I have personally seen and examined this patient.: Yes I have fully participated in the care of the patient.: Yes I have reviewed all pertinent clinical information, including history, physical exam and plan: Yes Notes (Text): Patient seen and examined with the resident. Agree with the resident's evaluation, assessment and plan. Patient was started on Labetalol and Hydralazine for hypertensive urgency ( initial blood pressure of 210/190. Blood pressure was decreased gradually. Neurology, Dr. Carrera was consulted as CT Head indicated bilateral lacunar type infarcts of basal ganglia/thalami. Patient could not initially be started on aspirin as he was noted to be having bloody stools and acute anemia, hemoglobin of 9.9. Patient was started on daily Protonix 40 mg IVP q12h and urgent endoscopy/colonoscopy was performed, which indicated gastric ulcer, gastritis negative for H. Pylori, hiatal hernia and diverticulosis (likely source of bleed ). Further neurologic work-up was negative for acute events. After clearance from GI, patient was started on baby aspirin. Lisinopril and Norvasc were also added for better blood pressure control. Patient was discharged home with instruction to follow-up with outpatient physical therapy and establish care with Dr. Wells as his primary care physician.
[2016-07-16 00:30] VITALS: PULSE 79
[2016-07-16 14:00] LABS: VON WILLERBRAND FACTOR AG 116 % (50-217)
== END 2016-07-15 20:10 | disposition home or self-care (01) | DRG 811 ==
LOC: C.ER 09:31 → C.9E 12:29 → C.6T 16:05
PROVIDERS: ADMIT Internal Medicine; ATTEND Internal Medicine
PROC: 0DB68ZX Excision of Stomach, Via Natural or Artificial Opening Endoscopic, Diagnostic (ICD-10-PCS; 2016-07-13)
PROC: 0DBN8ZX Excision of Sigmoid Colon, Via Natural or Artificial Opening Endoscopic, Diagnostic (ICD-10-PCS; principal; 2016-07-14 08:25)
DX: D62 Acute posthemorrhagic anemia (principal); K57.91 Diverticulosis of intestine, part unspecified, without perforation or abscess with bleeding; I67.82 Cerebral ischemia; K25.9 Gastric ulcer, unspecified as acute or chronic, without hemorrhage or perforation; I16.0 Hypertensive urgency; F10.20 Alcohol dependence, uncomplicated; E87.6 Hypokalemia; F17.210 Nicotine dependence, cigarettes, uncomplicated; K29.70 Gastritis, unspecified, without bleeding; K44.9 Diaphragmatic hernia without obstruction or gangrene; Z91.14 Patient's other noncompliance with medication regimen; Z91.19 Patient's noncompliance with other medical treatment and regimen; Z87.11 Personal history of peptic ulcer disease; K63.5 Polyp of colon